=== PATIENT | male | born 1960 | race Caucasian/White ===

== ENCOUNTER → 2016-05-20 | Day surgery (SDC) | payer OTHER ==
[~2016-05-20] MED LIST: ACETAMINOPHEN 1000 MG/100 ML VIAL IV ONE; ACETAMINOPHEN/HYDROcodone 325 MG/5 MG TAB ONE; ADDE10 PO; ASAC400T PO; ASAC800T PO; AZATHIOPRINE; BUPIVACAINE/EPINEPHRINE 0.25% PF 10 ML VIAL ONE; BUPIVACAINE/EPINEPHRINE 0.25% PF 30 ML VIAL ONE; CYCL5TAB PO; IMUR50TA PO; LACTATED RINGER'S 1000 ML INJ 1,000 ML ONE; MEDR4PAK PO; MEPERIDINE HCL 25 MG/ML VIAL ONE; MIDAZOLAM HCL 2 MG/2 ML VIAL ONE; MORPHINE SULFATE 4 MG/ML INJ ONE; ONDANSETRON HCL 4 MG/2 ML VIAL IV PUSH ONE; PRED10 PO; PROPOFOL 100 MG/10 ML INJ IV ONE; PROV200T11 PO; SODIUM CHLOR 0.9% 250 ML BAG IV ONE; VANCOMYCIN HCL 1000 MG VIAL ONE
--- NOTE | 2016-05-20 22:06 | MP ---
cc: ODETTE SOLANO M.D., MICHAEL A. MD DATE OF SURGERY: 05/20/2016 PROCEDURE: Laparoscopic right inguinal hernia repair with mesh. PREOPERATIVE DIAGNOSIS: Symptomatic reducible right inguinal hernia. POSTOPERATIVE DIAGNOSIS: Symptomatic direct reducible right inguinal hernia. ANESTHESIA: LMA. SURGEON: David Quiñonez MD. LOGGING RAFTER LABORER: Sandeep Barragan MS3 ESTIMATED BLOOD LOSS: Less than 20 mL FLUIDS: 1250 mL Crystalloid COMPLICATIONS: None. DRAINS: None. SPECIMEN: None. PROCEDURE IN DETAIL The patient was seen in the holding area and the right side marked by the undersigned and confirmed by the patient. He was taken to the operating room and was placed on the operating table in the supine position. He underwent laryngeal mask anesthesia and after this the abdomen and groin were prepped and draped in the field. Time-out was taken confirming the correct patient, site and procedure to be performed. The skin and subcutaneous tissue was infiltrated with local anesthetic and an incision made in the umbilicus and carried through the fascia sharply. The peritoneal cavity was directly visualized. A 12 mm balloon trocar was inserted and the balloon inflated. The patient was placed in Trendelenburg position. A 12-mm trocar was then placed in the right lower quadrant and a 5 mm trocar in the left lower quadrant. Both entered the abdominal cavity under direct vision uneventfully. The peritoneum was then incised with scissors and peeled downward. The hernia sac was peeled off of the cord structures. The patient was noted to have a direct hernia defect. When this had been completed, a window was created behind the spermatic cord structures. A 6 x 6 inch piece of Ultra PRO mesh was trimmed down and slit longitudinally. The mesh was placed into the pelvis and the smaller inferior leaf was brought under the spermatic cord structures. The mesh was then transfixed to Tomer's ligament with 4.0 mm adri and then to the transversalis fascia with 4.8 mm adri. The epigastric vessels were divided with the harmonic scalpel prior to this to allow for complete overlap of the defect. The slit was then closed laterally with two 4.8 mm adri. The insufflation pressure was then decreased and the peritoneum was closed with the 4.8 millimeter adri. When this was completed, insufflation was completely discontinued and the left and right lower quadrant trocars were removed under direct vision. No bleeding was noted from the trocar sites. The laparoscope and umbilical port were then removed. The fascia was closed in the right lower quadrant 12 millimeter trocar site in the umbilicus with 0 Vicryl suture in a simple interrupted fashion. The remaining local anesthetic was injected into the right groin area with a total of 40 mL of 0.25% Marcaine with epinephrine utilized. The skin was closed at all three trocar sites with 4-0 Vicryl in an interrupted buried fashion. All trocar sites were dressed with Steri-Strips. The patient was extubated and taken back to the Recovery Room in stable condition. He tolerated the procedure well. MD CORINNE Chance/JOSE /9:47 AM 9:55 PM
== END | disposition home or self-care (01) ==
LOC: ESDC 06:41
PROVIDERS: ATTEND Surgery Trauma Surgery
DX: K40.90 Unilateral inguinal hernia, without obstruction or gangrene, not specified as recurrent (principal)
CPT/HCPCS: 00840; 49650; C1781; J0131; J2175; J2250; J2270; J2405; J3010; J3370; J7050; J7120

== ENCOUNTER → 2016-11-05 | Day surgery (SDC) | payer OTHER ==
[~2016-11-05] MED LIST changes: -ACETAMINOPHEN 1000 MG/100 ML VIAL IV ONE; -ACETAMINOPHEN/HYDROcodone 325 MG/5 MG TAB ONE; -ASAC400T PO; -AZATHIOPRINE; -BUPIVACAINE/EPINEPHRINE 0.25% PF 10 ML VIAL ONE; -BUPIVACAINE/EPINEPHRINE 0.25% PF 30 ML VIAL ONE; -MEPERIDINE HCL 25 MG/ML VIAL ONE; -MIDAZOLAM HCL 2 MG/2 ML VIAL ONE; -MORPHINE SULFATE 4 MG/ML INJ ONE; -ONDANSETRON HCL 4 MG/2 ML VIAL IV PUSH ONE; -PRED10 PO; -PROPOFOL 100 MG/10 ML INJ IV ONE; +PROPOFOL 500 MG/50 ML BTL IV ONE; -SODIUM CHLOR 0.9% 250 ML BAG IV ONE; -VANCOMYCIN HCL 1000 MG VIAL ONE
--- NOTE | 2016-11-05 09:17 | GIPROC ---
[facility] [address] [facility], [address] COLONOSCOPY PROCEDURE REPORT EXAM DATE: 11/05/2016 PATIENT NAME: Zay Bautista MR #: [id number] BIRTHDATE: 1960 ENDOSCOPIST: Maranda Galvan MD ORDER #: [id number] ENVIRONMENTAL ISSUES INSTRUCTOR: STATUS: outpatient INDICATIONS: The patient is a 56 yr old male here for a colonoscopy due to ulcerative colitis PROCEDURE PERFORMED: Colonoscopy with biopsy MEDICATIONS: None and Per Anesthesia. PREP QUALITY: good PREP TYPE:Other: ESTIMATED BLOOD LOSS: None CONSENT: The patient understands the risks and benefits of the procedure and understands that these risks include, but are not limited to: sedation, allergic reaction, infection, perforation and/or bleeding. Alternative means of evaluation and treatment include, among others: physical exam, x-rays, and/or surgical intervention. The patient elects to proceed with this endoscopic procedure. medical equipment was checked for proper function. Hand hygiene and appropriate measures for infection prevention was taken. After the risks, benefits and alternatives of the procedure were thoroughly explained, Informed consent was verified, confirmed and timeout was successfully executed by the treatment team. A digital exam revealed no abnormalities of the rectum The EC-[id number] ([id number]) endoscope was introduced through the anus and advanced to the cecum, which was identified by both the appendix and ileocecal valve. The instrument was then slowly withdrawn as the colon was fully examined. COLON FINDINGS: Colitis starting midtransverse -granular mucosa with superficial ulcerations rest of colon normal biopsies from cecum, ascending, transverse, splenic flexure , midtransverse, descending, sigmoid, rectum. Retroflexed views revealed internal hemorrhoids and Retroflexed views revealed small internal hemorrhoids The scope was then completely withdrawn from the patient and the procedure terminated. PROCEDURE WITHDRAWAL TIME:6minutes ADVERSE EVENTS: There were no complications. IMPRESSIONS: 1. Colitis starting midtransverse -granular mucosa with superficial ulcerations rest of colon normal biopsies from cecum, ascending, transverse, splenic flexure , midtransverse, descending, sigmoid, rectum 2. Retroflexed views revealed internal hemorrhoids 3. Retroflexed views revealed small internal hemorrhoids 4. Revealed no abnormalities of the rectum RECOMMENDATIONS: 1. Await biopsy results. Biopsy results will not be ready for 7-10 days. If you don't hear from us in two weeks, call our office for results. 2. Probiotics from any [facility] or health food store 3. Trial of Uceris stool for c/s, c diff, ova/parasites RECALL: Colonoscopy, pending biopsy results Maranda Galvan MD eSigned: Maranda Galvan MD 11/05/2016 9:17 AM cc: Kamila Haro M.D. PATIENT NAME: Zay Bautista MR#: [id number]
== END | disposition home or self-care (01) ==
LOC: ESDC 07:31
PROVIDERS: ATTEND Internal Medicine Gastroenterology
DX: K51.90 Ulcerative colitis, unspecified, without complications (principal); K64.8 Other hemorrhoids
CPT/HCPCS: 00810; 45380; 88305; J7120

== ENCOUNTER 2018-04-13 22:52 | Inpatient (IN) ==
[2018-04-13] MEDS ORDERED: Aluminum/Magnesium/Simethacone Susp 30 ML UDC PO PRN (23:12)
[2018-04-13] MEDS ORDERED: Acetaminophen 325 MG Tablet PO PRN (23:12)
[2018-04-13] MEDS ORDERED: LORazepam 0.5 MG Tablet PO PRN (23:12)
[2018-04-13] MEDS ORDERED: Sodium Chloride 0.9% 2 ML Flush PRN IV.FLUSH (23:51)
[2018-04-14 00:58] LABS: Baso % (Auto) 0.6 % (0.0-2.0); Eos % (Auto) 0.4 % (0.0-4.0); Hemoglobin 10.6 gm/dL (13.0-17.0); Lymph # (Auto) 0.5 th/mm3 (1.0-4.8); Lymph % (Auto) 9.4 % (9.0-44.0); Mean Corpuscular HGB Conc 34.2 % (32.0-36.0); Mean Corpuscular Hemoglobin 31.4 pg (27.0-34.0); Mean Corpuscular Volume 91.9 fL (80.0-100.0); Mean Platelet Volume 6.7 fL (7.0-11.0); Mono # (Auto) 0.5 th/mm3 (0.0-0.9); Mono % (Auto) 10.1 % (0.0-8.0); Neut # (Auto) 4.1 th/mm3 (1.8-7.7); Neut % (Auto) 79.5 % (16.0-70.0); Platelet Count 365 th/mm3 (150-450); Red Blood Count 3.37 mil/mm3 (4.50-5.90); White Blood Count 5.1 th/mm3 (4.0-11.0)
[2018-04-14] MEDS: Ciprofloxacin 250 MG Tablet PO SCH ×3 (01:00→20:38)
[2018-04-14] MEDS: Dextrose 5%/NaCl 0.9% Inj 1,000 ML IV.CONT SCH ×3 (01:00→20:55)
[2018-04-14 01:07] LABS: Alanine Aminotransferase 14 U/L (12-78); Albumin 2.3 g/dL (3.4-5.0); Anion Gap 6 meq/L (5-15); Aspartate Aminotransferase 11 U/L (15-37); Blood Urea Nitrogen 12 mg/dL (7-18); C-Reactive Protein 2.48 mg/dL (0.00-0.30); Calcium 7.8 mg/dL (8.5-10.1); Chloride 102 meq/L (98-107); Glomerular Filtration Rate Greater Than 89 mL/min (>89); Glucose,Random 104 mg/dL (74-106); Potassium 4.1 meq/L (3.5-5.1); Sodium 135 meq/L (136-145)
[2018-04-14 01:09] LABS: Alkaline Phosphatase 43 U/L (45-117); Total Protein 5.6 g/dL (6.4-8.2)
--- NOTE | 2018-04-14 01:15 | MH ---
cc: Annette Cerda MD DATE OF ADMISSION: 04/13/2018 ADMISSION DIAGNOSES: 1. Ulcerative colitis. 2. Fever. SECONDARY DIAGNOSES: 1. Iron deficiency. 2. Hypersomnolence. 3. Osteopenia. 4. Cachexia. 5. Pulmonary sarcoidosis. HISTORY OF PRESENT ILLNESS: Mr. Bautista is a 57-year-old man, known patient to Dr. Maranda Galvan and Dr. Ari Leonard. He has a history of hypersomnolence and sarcoidosis of the lungs. He was diagnosed with ulcerative colitis in 1998. He went into remission in 2003 and was stable on Asacol for many years. He relapsed in 2013 after a parasitic infection in [place]. Since then, he has had progressive disease symptoms, with bloody diarrhea, tenesmus and weight loss. He has been refractory to multiple therapies including Asacol, Imuran, tacrolimus, Xeljanz, and most recently Humira. He was not responded to budesonide, but previously responded to prednisone. He is on adjunctive therapy with lomotil, and immodium. Recent treatment with prednisone has not shown any improvements. He had a brief response to Xeljanz, which was just approved as an oral agent for treatment of ulcerative colitis. He again developed increase bowel movements and symptoms. Progression was documented by repeat colonoscopy 01/27/18. He was switched to more traditional therapy for ulcerative colitis, Humira. He is presently on Humira with his last dose approximately 10 days ago. Despite starting on Humira, a disease modifying agent that target tumor necrosis factor and causes immunosuppresion. His symptoms worsen since stopping the Xeljanz and starting Humira. He has an increase in bloody bowel movement, he has > 15 bowel movements per day. He wakes at night with diarrhea. Trial of octreotide did not produce any change in the volume or frequency of diarrhea. In fact his symptoms worsen with the more potent immunosuppression. His performance status, weight,appetite worsen. His fatigue is worse. In light of what seemed to be Humira failure, he is planned to start a different immunosuppressive medication, Entyvio. On the day of admission, he developed headache, muscle ache and fevers, documented at home 101.5. He may have been febrile previously but no temperature was taken. Delay in fever diagnosis due to Tylenol taken for headaches now. He had intermittent sweats and chills at night previously. He was advised admission for evaluation of infection as source of fever. He has frequent successive bowel movements, every 3-4 hours associated with cramps, bloody diarrhea, and tenesmus. He had progressive weight loss with a body mass index 18. He has chronic dehydration, complications of iron deficiency, and osteopenia associated with his longstanding colitis diarrhea. He needs to be fever free and free of infection prior to starting Entyvio. REVIEW OF SYSTEMS: He has had a decrease in appetite. Megace was tried for appetite. He tried alternative therapy with Tumeric. He tried treatment for IBD such as Iberogast, IBgard, probiotics and naltrexone. He was seen for medicinal Cannabis. He has no nausea or vomiting. He has not had any formed stools since starting Humira. He has abdominal cramps associated with bowel movements. He denies any urinary complaints. He has no cough or pulmonary symptoms. He appears to be stable from his pulmonary sarcoid followed by Dr. Pham. He has a history of hypersomnolence managed by Dr. Astorga. He has consequently depression and anxiety related to his disease, managed by Dr. Augustine. He follows with Dr. Lopez locally. He has been seen at [facility] by Dr. Holden. Laboratory evaluation for GI infection has been negative. PAST MEDICAL HISTORY: Iron deficiency, hypersomnolence, osteopenia, pulmonary sarcoid, ulcerative colitis, unintentional weight loss, anorexia. PAST SURGICAL HISTORY: Colonoscopy, basal cell removal with Mohs surgery, hernia repair. SOCIAL HISTORY: He is , lives with his and 2 children. He is a never smoker. Denies any illicit drug use. He drank socially, but not recently. FAMILY HISTORY: Father of a CVA at age 89. Mother of COPD complications at age 79. ALLERGIES: IBUPROFEN AND PENICILLIN. MEDICATIONS: Include Adderall, diazepam, Lomotil, Humira, Provigil, Tums, budesonide. Humira. Viberzi. Ibgard. PHYSICAL EXAMINATION: VITAL SIGNS: Temperature 101.8, heart rate 86, respiratory rate 20, blood pressure 105/57, saturation 98%. GENERAL: Mr. Bautista is a cachectic-appearing man with decreased body mass and no body fat. HEENT: His pupils are round, reactive to light and accommodation. Oropharynx is clear. NECK: Supple. Tonsils are enlarged. LUNGS: Clear to auscultation. CARDIOVASCULAR: Reveals normal rate and rhythm. ABDOMEN: Diffusely tender with no rebound or guarding. Prominent active bowel sounds. LOWER EXTREMITIES: With no edema. Good pulses. NEUROLOGIC: Nonfocal. He looks tired and ill. LABORATORY DATA: CBC and CMP are pending. Reported C-reactive protein is elevated. ASSESSMENT AND PLAN: Mr. Bautista is a 57-year-old man with history of hypersomnolence and pulmonary sarcoidosis. He is diagnosed with ulcerative colitis and has had a flare since 2016. He has had worsening symptoms, particularly in 2018. He has tried multiple immunosuppressive therapy. Most recently, he is on Humira with the last dose about 10 days ago. He is pending to start a new immunosuppressive therapy when he developed fevers on the day of presentation. He is advised admission to the hospital[facility]. He is advised admission by his manager code, Dr. Maranda Williamson. He needs a consultation with infectious disease to rule out infectious etiology for his fevers. His home medications will continue. Treatment with Entyvio is on hold pending infection evaluation. Blood cultures x2 will be drawn. Antibiotic therapy with Cipro and Flagyl is initiated. Stool for Clostridium difficile and WBC will be obtained. Empiric coverage for herpes zoster is initiated discussed with Dr. Galvan. Most recent colonoscopy showed viral inclusions present consistent with herpes in the background of severe acute and chronic colitis exhibiting glandular distortion, consistent with inflammatory bowel disease. It was negative for dysplasia. Dietitian will be consulted in light of his unintentional weight loss. He has poor caloric intake with increased GI loss through the gastrointestinal tract. IV fluid hydration will be initiated with D5NS. TPN is deferred until. Valium QHS continue. CT scan of ten and pelvis will be coordinated pending baseline creatinine is stable. CT chest is being considered to rule out other site of infection causing fever. Mr. Bautista's questions were answered to his satisfaction. His case was discussed with Dr. Galvan and Dr. Mclaughlin. MD MARGUERITE Grace/sean/aditya , 11:58 PM , 12:28 AM JAQUELINE
[2018-04-14] MEDS: SODIUM CHLOR 0.9% IV.SIG SCH ×3 (02:25→15:40)
[2018-04-14] MEDS: ACYCLOVIR IV.SIG SCH ×3 (02:25→15:40)
[2018-04-14 03:26] LABS: Iron 16 mcg/dL (65-175)
[2018-04-14] MEDS ORDERED: Diphenoxylate/Atropine 2.5/0.025 MG Tablet PO PRN (03:33)
[2018-04-14 03:51] LABS: Ferritin 110 ng/mL (26-388); Vitamin B12 390 pg/mL (193-986)
[2018-04-14] MEDS ORDERED: Sod Chloride 0.9% Inj 1,000 ML IV.SIG ONE (05:45)
[2018-04-14] MEDS ORDERED: Modafinil 200 MG Tablet PO SCH (09:00)
[2018-04-14] MEDS: Sodium Chloride 0.9% 2 ML Flush BID IV.FLUSH SCH ×2 (09:46→21:00)
--- NOTE | 2018-04-14 10:05 | P.PNIM ---
Subjective Interval history: denies fever since last night. Physical Exam Vital signs: Last Vital Signs Temp 99.2 F 04/14/18 05:00 Pulse 71 04/14/18 05:00 Resp 16 04/14/18 05:00 BP 88/49 L 04/14/18 06:41 Pulse Ox 99 04/14/18 05:00 Narrative: GENERAL: THIN, NAD CARDIOVASCULAR: Regular rate and rhythm without murmurs, gallops, or rubs. RESPIRATORY: Clear to auscultation. Breath sounds equal bilaterally. No wheezes , rales, or rhonchi. GASTROINTESTINAL: Abdomen soft, non-tender, nondistended. Normal active bowel sounds MUSCULOSKELETAL: Extremities without clubbing, cyanosis, or edema. NEURO: Alert & Oriented x4 to person, place, time, situation. Moves all ext x4 Results Labs CBC & Chem 7: 04/15/18 07:03 04/15/18 09:44 Assessment and Plan Assessment (1) Fever: Code(s): R50.9 - Fever, unspecified Status: Acute (2) Ulcerative colitis with complication: Code(s): K51.919 - Ulcerative colitis, unspecified with unspecified complications Status: Acute (3) Hypersomnolence disorder, persistent: Code(s): G47.10 - Hypersomnia, unspecified Status: Acute (4) Pulmonary sarcoidosis: Code(s): D86.0 - Sarcoidosis of lung Status: Acute (5) Iron deficiency: Code(s): E61.1 - Iron deficiency Status: Acute (6) Cachexia: Code(s): R64 - Cachexia Status: Acute Plan - Mr. Bautista is a 57-year-old man with history of hypersomnolence and pulmonary sarcoidosis. - He is diagnosed with ulcerative colitis and has had a flare since 2016. - He has had worsening symptoms, particularly in 2018. - He has tried multiple immunosuppressive therapy. - Most recently, he is on Humira with the last dose about 10 days prior to this admission (04/14/18) - He is pending to start a new immunosuppressive therapy when he developed fevers on the day of presentation. - He is advised [facility] - He is advised admission by his jury consultant, Dr. Maranda Williamson. - He needs a consultation with infectious disease to rule out infectious etiology for his fevers. - His home medications will continue. - Treatment with Entyvio is on hold pending infection evaluation. - Await ID consultation. - Tmax 101.8F (2300 04/13/18) - Blood Cx x2 (04/14/18) --> pending - Stool studies (04/14/18) --> pending - fecal leucocytes --> many WBCs - enteric pathogens --> pending - crytopsporidium antigen --> pending - giardia antigen --> pending - gram stain --> pending - culture and sensitivity --> pending - C.Dif (04/14/18) --> negative - Cipro (04/14/18 - present) - flagyl (04/14/18 - present) - alinia (04/15/18 - present) - Acyclovir (04/14/17 - present) for herpes zoster coverage - Most recent colonoscopy showed viral inclusions present consistent with herpes in the background of severe acute and chronic colitis exhibiting glandular distortion, consistent with inflammatory bowel disease. It was negative for dysplasia - flaker tender consult placed for unintential weight loss. - TPN - marinol - CT A/P --> pending - consider CT chest - obtain CXR - UA --> pending - DVT prophylaxis - supportive care 2) hypersomnolence - provigil - adderal prn Progress Note: Quality VTE Deep Vein Thrombosis/Pulmonary Embolism Present on Admission: No
--- NOTE | 2018-04-14 11:02 | XR ---
EXAM DATE: 04/14/2018 10:53 AM EST AGE/SEX: 57 years / Male INDICATIONS: . Fever. CLINICAL DATA: This is the patient's initial encounter. Patient reports that signs and symptoms have been present for 1 day and indicates a pain score of 0/10. MEDICAL/SURGICAL HISTORY: None. None. COMPARISON: [facility], XR CHEST PA AND LAT, 03/15/2018. . FINDINGS: The lungs are clear without infiltrate, nodule, or mass. There is no appreciable pleural effusion for technique. Heart and mediastinum are unremarkable. There is scarring and pleural thick ening in the apices bilaterally worse involving the left upper lobe not significantly changed since 2 015. COPD changes are seen. CONCLUSION: No acute cardiopulmonary disease. Electronically signed by: Isela Haile MD Board Certified Radiologist 04/14/2018 11:00 AM EST
[2018-04-14] MEDS ORDERED: Diatrizoate Meglum/Diatrizoate Sod Liq 9 ML UDC PO ONE (11:30)
--- NOTE | 2018-04-14 12:32 | P.DIET ---
Nutritional Evaluation Type of nutrition evaluation: initial Nutrition consult regarding: TPN/PPN Nutrition screening: Weight Loss > 10 lbs, Poor PO Intake, MDC Objective - Diagnosis Ulcerative colitis - Objective Body Mass Index: 18 Oran body weight: 70 kg % IBW: 77 Body Weight Used for Calculations: Actual Energy Needs - Lower Range (kCal/kg): 32 Energy Needs - Upper Range (kCal/kg): 38 Lower Limit kCal/kg (kCals): 1,715 Upper Limit kCal/kg (kCals): 2,036 Lower Limit Protein Factor (Grams per Kg): 1 Upper Limit Protein Factor (Grams per Kg): 1.5 Lower Protein Needs (Protein): 54 Upper Protein Needs (Protein): 80 Dietitian Reviewed in Medical Record: Current diet, Curent medications, Intake & Output, Labs, Medical history Diet Order: Full liquids Objective Comments: PMH; gastritis, rectal bleeding, anemia Medications; MVI Labs; reviewed Assessment Assessment: [facility] Possible TPN; Pt is currently at nutritional risk related to medical course. Pt w/ h/o UC and has been in severe relapse since 2016 s/p visit to [place] where pt acquired parasitic infection causing ongoing bloody diarrhea, tenesmus and weight loss(currently underweight with BMI of 18). Symptoms continue to worsen with increased bloody bowel movements with >15 per day and decreased appetite for which megace was trialed but did not help. Pt with iron deficiency anemia and osteopenia r/t longstanding colitis. Pt is currently ordered for full liquid diet and has consumed 25% this morning at breakfast. At this time, I am agreeable to transition pt to TPN as bowel rest is appropriate for UC. Important to note that related to clinical course with UC pt is likely malabsorbing several nutrients with ongoing diarrhea and may benefit from MVI supplementation. MVI supplementation also beneficial in the presence of osteopenia r/t oven press tender steroid use. TPN recs are as follows; Clinimix E 5/20 running at 60ml/hour with 20% lipids running at 10ml/s hour for 24 hours to provide a total of 1992kcal and 72g protein. Would recommend to obtain TG level prior to initiating TPN as it may change lipid recommendations. Will monitor labs; glucose, electrolyte levels, and TG levels in the presence of TPN. Dietitian following. Recommendations: 1. Agreeable to transition to TPN 2. TPN recs; Clinimix E 5/20 running at 60ml/ hour plus 20% lipids running at 10ml/hour for 24 hours 3. Monitor labs, electrolytes, glucose and TG in presence of TPN 4. Dietitian following Dietitian to Monitor: Lab values, Electrolytes, Glucose level, Intake & Output, TPN/PPN tolerance
--- NOTE | 2018-04-14 13:47 | MB ---
cc: Apolinar Garcia MD DATE: 04/14/2018 REQUESTING PHYSICIAN: Dr. Cerda REASON FOR VISIT: Fever, severe ulcerative colitis on immunosuppressive therapy. Recently treated with Humira, now planning to be treated with Entyvio Evaluate for infectious cause of fever. HISTORY OF PRESENT ILLNESS: This is a 57-year-old white male who presented to the hospital with fever. The patient has a history of ulcerative colitis since 2013. He has been tried on multiple agents for treatment, but has not responded appropriately. The patient has been having multiple bouts of diarrhea on a daily basis; up to 14 bouts a day. He gets cramping of the abdomen along with diarrhea. He notes that when he gets fevers he gets aches in the joints. He mentioned a fever yesterday at home and it was elected to admit him for evaluation. The patient denies cough or shortness of breath. He has a history of sarcoidosis of the lung for which he has been followed by a spooler operator. He reports that he had some improvement of his colitis when he was started on Humira, but that did not last very long. He underwent colonoscopy back in January 2018 and the pathology of the biopsies showed inclusion bodies suggesting herpes. He was put on acyclovir. The patient has had a low blood pressure after admission with a blood pressure of 83/48 and the last blood pressure today was 98/54. He is awake and alert. He is in no acute distress. He tells me that he feels chronically fatigued and that he has a decreased appetite. He reports that the Crohn's was diagnosed after he developed diarrhea while in [place] and was diagnosed with a parasite infection. Stool testing has been ordered. Chest x-ray shows no acute infiltrates. Blood cultures have been ordered. The patient had been tested for tuberculosis in the past before he was given immunosuppressive medications and it was negative. PAST MEDICAL HISTORY: Pulmonary sarcoidosis, ulcerative colitis, anorexia, iron deficiency anemia, hypersomnolence, history of basal cell carcinoma, history of hernia repair. ALLERGIES: IBUPROFEN AND PENICILLIN G. MEDICATIONS: Ciprofloxacin, acyclovir, Flagyl, Alinia, Marinol, Lomotil, Valium Adderall. SOCIAL HISTORY: The patient is . No tobacco. The patient has never smoked; occasional alcohol. No illicit drugs. FAMILY HISTORY: Noncontributory. REVIEW OF SYSTEMS: CONSTITUTIONAL: Significant for fever. Also, has sweats. HEAD, EARS, EYES HEENT: No visual blurring. No diplopia. No nasal bleeding or drainage. No difficulty swallowing or soreness of the throat. NECK: No adenopathy or swelling. RESPIRATORY: No cough or shortness of breath. CARDIOVASCULAR: No palpitation or chest pain. GASTROINTESTINAL: Significant for diarrhea and abdominal cramping. GENITOURINARY: No urgency, frequency or dysuria. HEMATOPOIETIC: No easy bruising or bleeding. INTEGUMENTARY: No skin rash or itching. NEUROLOGIC: No problems with coordination. PSYCHIATRIC: Occasional depressed mood. PHYSICAL EXAMINATION: GENERAL: This is a cachectic male who is awake and alert and in no acute distress. VITAL SIGNS: Temperature 97.9, BP 98/54, respirations 20, heart rate 91. HEENT: The head is atraumatic. Extraocular movements grossly intact. Pupils reactive to light. No icterus. Oropharynx: Slightly dry mucosa. No visible thrush. NECK: Supple without adenopathy or swelling. LUNGS: Decreased breath sounds throughout. HEART: Regular S1, S2, without audible murmurs. ABDOMEN: Bowel sounds present. Soft, no tenderness appreciated. RECTAL: Not performed. EXTREMITIES: No clubbing or cyanosis. Diffuse muscle wasting. Decreased muscle bulk. SKIN: No rash. NEUROLOGIC: No gross focal findings The patient is calm and cooperative. LABORATORY DATA: WBC 5.1, platelets 365, hemoglobin 10.6, 79% neutrophils, 10% monocytes, 9% lymphocytes. IMPRESSION: 1. Fever. ? etiology. ? infection. ? drug fever. 2. Ulcerative colitis with intractable diarrhea. 3. Weight loss. 4. 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 At this point the source of fever in this patient is unclear. RECOMMENDATIONS: 1. Continue to monitor blood cultures. 2. Monitor stool study. 3. Follow the CT scan of the abdomen and pelvis. 4. Monitor the temperature. 5. Continue the current antibiotics with ciprofloxacin, Flagyl, Acyclovir. 6. Continue Alinia for now. Thank you for this consultation. The patient's progress will be monitored and further recommendations will be made upon followup if necessary. Apolinar Garcia MD FFElva/thao , 12:58 PM , 01:19 PM JAQEULINE
[2018-04-14] MEDS: Loperamide 2 MG Capsule PO SCH ×2 (14:51→20:38)
--- NOTE | 2018-04-14 16:21 | CT ---
EXAM DATE: 04/14/2018 4:11 PM EST AGE/SEX: 57 years / Male INDICATIONS: Fevers, cachexia. Ulcerative colitis. CLINICAL DATA: This is the patient's subsequent encounter. Patient reports that signs and symptoms h ave been present for > 1 year and indicates a pain score of 6/10. MEDICAL/SURGICAL HISTORY: Ulcerative colitis. Anemia. Inguinal hernia repair. ORAL CONTRAST: Prescribed oral contrast ingested. RADIATION DOSE: 8.64 CTDI (mGy) COMPARISON: No prior exams available for comparison. TECHNIQUE: Multiple contiguous axial images were obtained through the abdomen and pelvis following b olus infusion of 70 ml Omnipaque 350 (iohexol) nonionic water-soluble contrast as a single exam dos e. Prescribed oral contrast ingested. Using automated exposure control and adjustment of the mA and/ or kV according to patient size, radiation dose was kept as low as reasonably achievable to obtain op timal diagnostic quality images. DICOM format image data is available electronically for review and comparison. FINDINGS: Abdomen CT: The spleen, pancreas and right kidney, adrenals are unremarkable. Approximate 1.1 cm cyst is present in the left kidney. There is a prominent gonadal vein on the left side. There is no evidence for any appreciable pathological adenopathy, free fluid, or bowel obstruction. Subcentimeter cyst is present in right hepatic lobe laterally. Pelvic CT: There is no evidence for mass, abscess formation, or any significant adenopathy within the pelvis. T here is moderate bowel wall thickening of the sigmoid colon and portions of the descending colon part icularly could be due to lack of proper distention, however submucosal process in this patient with u lcerative colitis should be entertained. The cecum also demonstrates questionable mild bowel wall thi ckening. CONCLUSION: There is thickening of the wall of the colon particularly the descending colon and sigmoi d colon part of it could be technical, however submucosal process in this patient with ulcerative col itis is not excluded. Electronically signed by: Isela Haile MD Board Certified Radiologist 04/14/2018 4:20 PM EST
[2018-04-14] MEDS: Mesalamine 800 MG Tablet DR PO SCH (21:34)
[2018-04-14] MEDS ORDERED: MethylPREDNISolone Sod Succinate Inj 40 MG/ML Vial IV.PUSH SCH (23:45)
--- NOTE | 2018-04-15 01:10 | MB ---
cc: Maranda Galvan MD DATE: 04/14/2018 REASON FOR CONSULTATION: Ulcerative colitis, severe diarrhea with dehydration. HISTORY OF PRESENT ILLNESS: Mr. Bautista is a very pleasant 57-year-old gentleman with multiple medical problems diagnosed with ulcerative colitis starting in 1998. As per the records, he had proctitis only. He went into remission in 2003. He was placed on Asacol for many years and that was under control. In 2013, he had a relapse after having a parasitic infection in [place]. He was treated. He improved temporarily but since then his disease was active on and off. He was tried on multiple therapies that will include Asacol, Imuran, tacrolimus, Xeljanz, Humira and Entocort with no improvement in his symptoms. He was on prednisone on and off, he used to respond to short courses of steroids. Recently, he stopped responding to the medication. The patient was also placed on Alinia, rifaximin, probiotics with no response. He was evaluated earlier this year at [facility] by Dr. Adina hugo in the IBD clinic. Recent visit in February with her, concur with Humira/Tacrolimus treatment , short course of Vancomycin was given-no improvement . Last Humira injection 10 days ago, but apparently after discussing with him and his , he had another one 3 days ago. He had worsening in his symptoms including bloody diarrhea, bowel movements, more than 15 bowels per day, decreased appetite , weight loss . He was also tried on octreotide with no improvement in his symptoms, had outpatient iv fluids He did try 2 different antispastic and antidiarrheals with no real improvement in his symptoms. Possible failure to Humira and arrangements for Entivio were made. The patient developed fever last night, 101.5. He was advised to come to the emergency room for further evaluation and treatment. He recently had Humira antibody titer done-negative . The patient was also seen by the cannabis clinic and she was approved for medical marijuana pending approval for his card. The patient has also a history of pulmonary sarcoidosis followed closely by Dr. Pham, had CT chest done, recent chest x-ray, QuantiFERON test, all negative for any acute disease. PAST MEDICAL HISTORY: Hypersomnolence osteopenia, pulmonary sarcoidosis, ulcerative colitis, anorexia, iron deficiency. PAST SURGICAL HISTORY: He had basal cell removal with Mohs surgery and hernia repair. SOCIAL HISTORY: Denies any smoking or drug use. Occasionally uses alcohol. FAMILY HISTORY: Father had CVA. Mother has COPD. ALLERGIES: PENICILLIN, IBUPROFEN, WAS TOLD NOT TO TAKE DUE TO HISTORY OF ULCERATIVE COLITIS. MEDICATIONS: 1. Adderall 2. Diazepam. 3. Lomotil. 4. Humira. 5. Provigil. 6. Tums. 7. Budesonide. 8. IBgard. 9. He was also on Prograf, but that was stopped recently. PHYSICAL EXAMINATION: GENERAL: He is sitting in bed in no acute distress. VITAL SIGNS: His T-max yesterday was 101.8, since admission his temperature was normal, currently 98, blood pressure 85/54. The patient is known to have low blood pressure. His usual blood pressure runs around 100/50. His heart rate is 82 and respirations 16. His weight is 53.6. He lost approximately 20 pounds most of it recently. REVIEW OF SYSTEMS: GENERAL: He denies any fever or chills today, but he did have yesterday prior to his admission weight loss, fatigue. ENT: No alteration in baseline hearing or activity. PULMONARY: Denies any chest pain, shortness of breath. GASTROINTESTINAL: As above. GENITOURINARY: Denies dysuria or hematuria. HEMATOLOGIC: History of anemia. No bleeding disorder. SKIN: No alteration in baseline skin lesion. NEUROLOGIC: No history of TIA or CVA kind of symptoms. GENERAL: On clinical examination, sitting in bed in no acute distress, very slim, chronically ill. HEENT: PERRLA. NECK: No JVD. No lymphadenopathy. CHEST: Clear to auscultation and palpation. CARDIOVASCULAR: S1, S2. No murmur. ABDOMEN: Soft, nontender. Bowel sounds are present. CENTRAL NERVOUS SYSTEM: Awake, alert, oriented x3. No focal signs identified. LABORATORY DATA: His white count 5.1, hemoglobin 10.6, platelets 365. Chemistries suggestive of sodium 135, potassium 4.1, chloride 102, calcium 7.8 , AST 11, ALT 14, alkaline phosphatase 43. C-reactive protein 248, total protein 5.6, albumin 2.3. CEA 0.4, TSH 0994. Stool studies were negative for C. difficile. Eosinophilic stools 5-10, which is high. Tacrolimus less than 2. Stool studies negative so far. Multiple blood tests and stool tests are still pending. CT abdomen and pelvis, which was done recently today and that was discussed with the radiologist, showed thickening of the wall of the colon, particularly in the descending colon and sigmoid colon, which could be technically however, a submucosal process in this patient who has ulcerative colitis, it is not excluded. Colonoscopy back in January of this year that showed progression of his colitis to the descending colon and some area in the transverse colon. Biopsies were performed suggestive of ulcerative colitis. One biopsy suggested possible viral inclusion. None of the others suggested the same. There was discussion at that time with pathologist and it was felt that he had extreme inflammation and it was unclear if that was true or not. The patient had a CMV viral load done earlier this year, which was negative, was evaluated at [facility] by Dr. Holden in 2018-last visit february EGD/colon in 2017 -negative egd capsule endoscopy 2016 which was negative for any small bowel pathology. MRA of the abdomen and pelvis 2018, did not show any vasculitis or any other vascular pathology. CT chest done 2018 -no active pulmonary sarcoidosis IMPRESSION: 1. Severe ulcerative colitis, not responding to the current management at this time, refractory to steroids and medical treatment so far. 2. Severe diarrhea, need to rule out infectious etiology-currently empirically started on cipro/flagyl and zivirax 3. Weight loss with malnutrition secondary to the above-ppn, marinol , nutritional consult 4. Fever resolved at this time, possible secondary to Humira-humira pending unclear at this time. Infectious process needs to be ruled out. RECOMMENDATIONS: TPN will be started. Nutritional evaluation. We will start Asacol 1.8 mg p.o. 3 times a day. Canasa suppositories, Bentyl. Continue Cipro/Flagyl/Zovirax, Marinol If no fever tonight, we will start her on Solu-Medrol IV. EGD/colonoscopy, in the morning if no fever with mild preparation Follow stool studies that were ordered that will include stool electrolytes, stool fat, alpha-1 antitrypsin. Follow-up Additional blood work was sent, -pending at this time.-Lymphocyte profile DAIJA, chromogranin, celiac panel, food allergy panel, thyroid peroxidase antibody, VIP and gastrin level, Supportive care. Consider short chain fatty acids orally and enema-not available here The patient was referred as an outpatient to [facility] awaiting appointment as Dr. Cervantes from [facility] is no longer available at that facility. If no improvement colorectal surgery evaluation Daily weight, strict monitoring of input and output. Lomotil p.r.n. Imodium as needed for diarrhea. continue IV hydration. Further recommendation will depend on the patient's clinical status and the above results. I would like to thank Dr. Cerda and Dr. Mclaughlin for referring him to our office for consultation. MD WINSOME Johnson/todd , 11:28 PM , 11:56 PM MTDD
[2018-04-15] MEDS: ACYCLOVIR IV.SIG SCH ×3 (01:18→17:25)
[2018-04-15] MEDS: SODIUM CHLOR 0.9% IV.SIG SCH ×3 (01:18→17:25)
[2018-04-15] MEDS ORDERED: Chlorhexidine Gluconate 2% 1 Pack (2 Cloths) TOPICAL ONE (06:30)
[2018-04-15] MEDS ORDERED: Sodium Chlor 0.9% Inj 500 ML IV.CONT ONE (06:30)
[2018-04-15] MEDS ORDERED: Metoprolol Tartrate 25 MG Tablet PO ONE (06:30)
[2018-04-15 07:25] LABS: Baso % (Auto) 0.1 % (0.0-2.0); Eos % (Auto) 0.1 % (0.0-4.0); Hematocrit 32.4 % (39.0-51.0); Hemoglobin 11.2 gm/dL (13.0-17.0); Lymph # (Auto) 0.4 th/mm3 (1.0-4.8); Lymph % (Auto) 8.2 % (9.0-44.0); Mean Corpuscular HGB Conc 34.7 % (32.0-36.0); Mean Corpuscular Hemoglobin 31.6 pg (27.0-34.0); Mean Corpuscular Volume 91.1 fL (80.0-100.0); Mean Platelet Volume 6.5 fL (7.0-11.0); Mono # (Auto) 0.2 th/mm3 (0.0-0.9); Mono % (Auto) 3.2 % (0.0-8.0); Neut # (Auto) 4.6 th/mm3 (1.8-7.7); Neut % (Auto) 88.4 % (16.0-70.0); Platelet Count 344 th/mm3 (150-450); Red Blood Count 3.56 mil/mm3 (4.50-5.90); White Blood Count 5.2 th/mm3 (4.0-11.0)
[2018-04-15 07:48] LABS: Anion Gap 4 meq/L (5-15); Blood Urea Nitrogen 11 mg/dL (7-18); Calcium 7.8 mg/dL (8.5-10.1); Carbon Dioxide 27.8 meq/L (21.0-32.0); Chloride 106 meq/L (98-107); Glomerular Filtration Rate Greater Than 89 mL/min (>89); Glucose,Random 143 mg/dL (74-106); Magnesium 2.3 mg/dL (1.5-2.5); Potassium 4.4 meq/L (3.5-5.1); Sodium 138 meq/L (136-145)
[2018-04-15] MEDS ORDERED: Magnesium Citrate Liq 300 ML Bottle PO ONE (09:00)
[2018-04-15] MEDS: Sodium Chloride 0.9% 2 ML Flush BID IV.FLUSH SCH ×2 (09:18→20:31)
[2018-04-15] MEDS: Loperamide 2 MG Capsule PO SCH (09:26)
[2018-04-15] MEDS: Ciprofloxacin 250 MG Tablet PO SCH ×2 (09:46→20:27)
[2018-04-15] MEDS: Mesalamine 800 MG Tablet DR PO SCH ×3 (09:46→17:25)
[2018-04-15 10:31] LABS: Albumin 2.1 g/dL (3.4-5.0); Anion Gap 8 meq/L (5-15); Aspartate Aminotransferase 12 U/L (15-37); Blood Urea Nitrogen 11 mg/dL (7-18); Calcium 7.8 mg/dL (8.5-10.1); Carbon Dioxide 26.4 meq/L (21.0-32.0); Chloride 106 meq/L (98-107); Glomerular Filtration Rate Greater Than 89 mL/min (>89); Glucose,Random 124 mg/dL (74-106); Potassium 4.3 meq/L (3.5-5.1); Sodium 140 meq/L (136-145)
[2018-04-15 10:34] LABS: Alanine Aminotransferase 16 U/L (12-78); Alkaline Phosphatase 42 U/L (45-117); Total Protein 5.7 g/dL (6.4-8.2)
[2018-04-15 10:46] LABS: Immunoglobulin A 178 mg/dL (93-514); Immunoglobulin G 913 mg/dL (660-1640); Immunoglobulin M 95 mg/dL (40-247)
--- NOTE | 2018-04-15 11:47 | P.PNIM ---
Subjective Interval history: Pt reports that he was able to sleep for 5 hours continuous overnight. Pt feels better overall. Per pt no change in constant diarrhea yet. Physical Exam Vital signs: Last Vital Signs Temp 97.3 F L 04/15/18 07:43 Pulse 62 04/15/18 07:43 Resp 19 04/15/18 07:43 BP 88/57 L 04/15/18 07:43 Pulse Ox 100 04/15/18 07:43 Narrative: GENERAL: THIN, NAD CARDIOVASCULAR: Regular rate and rhythm without murmurs, gallops, or rubs. RESPIRATORY: Clear to auscultation. Breath sounds equal bilaterally. No wheezes , rales, or rhonchi. GASTROINTESTINAL: Abdomen soft, non-tender, nondistended. Normal active bowel sounds MUSCULOSKELETAL: Extremities without clubbing, cyanosis, or edema. NEURO: Alert & Oriented x4 to person, place, time, situation. Moves all ext x4 Results Labs CBC & Chem 7: 04/15/18 07:03 04/15/18 09:44 Assessment and Plan Assessment (1) Fever: Code(s): R50.9 - Fever, unspecified Status: Acute (2) Ulcerative colitis with complication: Code(s): K51.919 - Ulcerative colitis, unspecified with unspecified complications Status: Acute (3) Hypersomnolence disorder, persistent: Code(s): G47.10 - Hypersomnia, unspecified Status: Acute (4) Pulmonary sarcoidosis: Code(s): D86.0 - Sarcoidosis of lung Status: Acute (5) Iron deficiency: Code(s): E61.1 - Iron deficiency Status: Acute (6) Cachexia: Code(s): R64 - Cachexia Status: Acute Plan - Mr. Bautista is a 57-year-old man with history of hypersomnolence and pulmonary sarcoidosis. - He is diagnosed with ulcerative colitis and has had a flare since 2016. - He has had worsening symptoms, particularly in 2018. - He has tried multiple immunosuppressive therapy. - Most recently, he is on Humira with the last dose about 10 days prior to this admission (04/14/18) - He is pending to start a new immunosuppressive therapy when he developed fevers on the day of presentation. - He is advised admission by his commutator presser, Dr. Maranda Williamson. - He needs a consultation with infectious disease to rule out infectious etiology for his fevers. - His home medications will continue. - Treatment with Entyvio is on hold pending infection evaluation. - comgmt with Gastroenterology & Infectious Disease - Tmax 101.8F (2300 04/13/18), but afebrile since - Blood Cx x2 (04/14/18) --> NGTD - Stool studies (04/14/18) --> pending - fecal leucocytes --> many WBCs - enteric pathogens --> no enteric pathogens dected by PCR - crytopsporidium antigen --> pending - giardia antigen --> pending - culture and sensitivity --> pending - C.Dif (04/14/18) --> negative - Cipro (04/14/18 - 04/15/18) - flagyl (04/14/18 - 04/15/18) - alinia (04/15/18 - present) - asacol (04/14/18 - present) - Canasa (04/14/18 - present) - Bentyl (04/14/18 - present) - Lactobacillus (04/15 - present) - IV solumedrol (04/15 - present) - Acyclovir (04/14/18 - present) for herpes zoster coverage - Most recent colonoscopy showed viral inclusions present consistent with herpes in the background of severe acute and chronic colitis exhibiting glandular distortion, consistent with inflammatory bowel disease. It was negative for dysplasia - thermal cutter helper consult placed for unintential weight loss. - TPN started (04/14/18). Will continue TPN through 04/19/18 at [facility] and/or until diarrhea improved - marinol - CT A/P (04/14/18) --> thickening of the wall of the colon particularly the descending colon & sigmoid colon part of it could be technical. Submucosal process in this pt with UC is NOT excluded. - consider CT chest --> 04/16/18 - CXR (04/14/17) --> no acute findings - GI allergy labs --> pending - stool studies sendout labs --> pending - [id number] --> pending - eosinophil stool smear (04/14/17) --> elevated 5-10 - IgG, IgA, IgM --> WNL - IgE --> pending - Chromagranin A, transgluatimin IgA, thyroglobulin Ab --> pending - throid peroxidate AB, Celiac Disease Interp --> pending - UA --> pending - Case d/w Dr. Galvan (04/15/18). Pt to undergo EGD/Colonoscopy with Biopsies later today. - Case d/w Dr. Cerda (04/15/18). - Case d/w Dr. Duran, ID, (04/15/18). Will end cipro/flagyl today. - anticpate continued hospitalization thru at least 04/19/18 - DVT prophylaxis - supportive care 2) hypersomnolence - adderal prn Progress Note: Quality VTE Deep Vein Thrombosis/Pulmonary Embolism Present on Admission: No
--- NOTE | 2018-04-15 12:35 | P.PNID ---
Subjective Remarks: Patient is afebrile and has no fevers overnight. States that he feels okay. Continues to have watery stools. Stool studies unremarkable. Blood cultures no growth. ID consulted for fever, severe ulcerative colitis on immunosuppressive therapy. Recently treated with Humira, now planning to be treated with Centavo. 57-year-old white male who presented to the hospital with fever. The patient has a history of ulcerative colitis since 2013. He has been tried on multiple agents for treatment, but has not responded appropriately. The patient has been having multiple bouts of diarrhea on a daily basis; up to 14 bouts a day. He gets cramping of the abdomen along with diarrhea. He notes that when he gets fevers he gets aches in the joints. He mentioned a fever yesterday at home and it was elected to admit him for evaluation. Past Medical History: Pulmonary sarcoidosis, ulcerative colitis, anorexia, iron deficiency anemia, hypersomnolence, history of basal cell carcinoma, history of hernia repair. Allergies/Adverse Reactions: Allergies ibuprofen Allergy (Mild, Verified 01/27/18 08:58) Irritation MD told him not to take due to ulcerative colitis penicillin G Allergy (Mild, Verified 01/27/18 08:58) Rash Objective Vital Signs 04/14/18 16:00 04/14/18 20:34 04/14/18 23:36 Temperature 98.4 F 98 F 98 F Pulse Rate 80 71 70 Respiratory Rate 18 18 18 Blood Pressure 85/54 L 88/46 L 92/64 L Pulse Oximetry 100 99 96 04/15/18 04:48 04/15/18 07:43 04/15/18 12:00 Temperature 97.5 F L 97.3 F L 97.7 F Pulse Rate 67 62 61 Respiratory Rate 18 19 16 Blood Pressure 96/53 L 88/57 L 81/48 L Pulse Oximetry 99 100 99 Intake & Output 04/14/18 04/15/18 04/15/18 18:59 06:59 18:59 Intake Total 4490 / 4490 2065 / 2065 155 / 155 Output Total 600 / 600 Balance 4490 / 4490 1465 / 1465 155 / 155 Weight 53.4 kg Intake: IV 2330 / 2330 1165 / 1165 155 / 155 D5W/Normal Saline Inj 1,000 ML 1000 / 1000 1000 / 1000 @ 100 mls/hr IV.CONT .Q10H [facility] Rx#:[id number] Zovirax Inj 250 MG In NS Inj 50 110 / 110 55 / 55 55 / 55 ML @ 55 mls/hr IV.SIG Q8H [facility] Rx#:[id number] NS Inj 1,000 ML @ 1000 mls/hr 1000 / 1000 IV.SIG .Q1H [facility] Rx#:[id number] Flagyl 500 MG Inj 100 ML @ 100 220 / 220 110 / 110 100 / 100 mls/hr IV.SIG Q8H [facility] Rx#: [id number] Oral 2160 / 2160 900 / 900 Output: Urine 600 / 600 Other: # Voids 11 Date of Last Bowel Movement 04/14/18 04/14/18 # Bowel Movements 11 04/14/18 06:52 Clean Catch Urine Urine Culture - Preliminary No growth in 24 hours 04/14/18 00:35 Blood - Peripheral Aerobic Blood Culture - Preliminary No growth in 1 day 04/14/18 00:35 Blood - Peripheral Anaerobic Blood Culture - Preliminary No growth in 1 day 04/14/18 00:30 Blood - Peripheral Aerobic Blood Culture - Preliminary No growth in 1 day 04/14/18 00:30 Blood - Peripheral Anaerobic Blood Culture - Preliminary No growth in 1 day 04/14/18 11:10 Stool Stool for WBCs - Final 04/14/18 00:50 Stool Enteric Pathogens (PCR) - Final No enteric pathogens detected by PCR (No Salmonella sp., Shigella sp., Campylobacter sp., Yersinia enterocolitica, Vibrio sp., Norovirus, or EHEC (Shiga Toxin 1 or Shiga Toxin 2) detected. 04/14/18 00:50 Stool Stool for WBCs - Final 04/14/18 00:50 Stool Cryptosporidium Antigen - Pending 04/14/18 00:50 Stool Giardia Antigen (BELA) - Pending Lab - Hematology Results 04/14/18 04/15/18 04/15/18 00:05 07:03 09:44 WBC 5.1 5.2 RBC 3.37 L 3.56 L Hgb 10.6 L 11.2 L Hct 31.0 L 32.4 L MCV 91.9 91.1 MCH 31.4 31.6 MCHC 34.2 34.7 RDW 13.0 13.0 Plt Count 365 344 MPV 6.7 L 6.5 L Neut % (Auto) 79.5 H 88.4 H Lymph % (Auto) 9.4 8.2 L Baxter % (Auto) 10.1 H 3.2 Eos % (Auto) 0.4 0.1 Baso % (Auto) 0.6 0.1 Neut # (Auto) 4.1 4.6 Lymph # (Auto) 0.5 L 0.4 L Baxter # (Auto) 0.5 0.2 Eos # (Auto) 0.0 0.0 Baso # (Auto) 0.0 0.0 WBC Differential . . Differential Comment Auto diff final Auto diff final ESR 17 Lab - Chemistry Results 04/14/18 04/14/18 04/14/18 00:05 00:05 00:05 Sodium 135 L Potassium 4.1 Chloride 102 Carbon Dioxide 27.0 Anion Gap 6 BUN 12 Creatinine 0.88 Estimated GFR Greater than 89 Random Glucose 104 Calcium 7.8 L Magnesium 2.0 Iron 16 L Ferritin 110 Total Bilirubin 0.2 AST 11 L ALT 14 Alkaline Phosphatase 43 L C-Reactive Protein 2.48 H Total Protein 5.6 L Albumin 2.3 L Carcinoembryonic Ag Vitamin B12 390 TSH 0.994 Cortisol 04/14/18 04/14/18 04/15/18 09:52 09:52 07:03 Sodium 138 Potassium 4.4 Chloride 106 Carbon Dioxide 27.8 Anion Gap 4 L BUN 11 Creatinine 0.71 Estimated GFR Greater than 89 Random Glucose 143 H Calcium 7.8 L Magnesium 2.3 Iron Ferritin Total Bilirubin AST ALT Alkaline Phosphatase C-Reactive Protein Total Protein Albumin Carcinoembryonic Ag 0.4 Vitamin B12 TSH Cortisol 21.0 04/15/18 09:44 Sodium 140 Potassium 4.3 Chloride 106 Carbon Dioxide 26.4 Anion Gap 8 BUN 11 Creatinine 0.70 Estimated GFR Greater than 89 Random Glucose 124 H Calcium 7.8 L Magnesium Iron Ferritin Total Bilirubin Less than 0.1 L AST 12 L ALT 16 Alkaline Phosphatase 42 L C-Reactive Protein Total Protein 5.7 L Albumin 2.1 L Carcinoembryonic Ag Vitamin B12 TSH Cortisol Imaging: ITS Impressions Abdomen/Pelvis CT 04/14/18 00:00 CONCLUSION: There is thickening of the wall of the colon particularly the descending colon and sigmoid colon part of it could be technical, however submucosal process in this patient with ulcerative colitis is not excluded. Chest X-Ray 04/14/18 00:00 CONCLUSION: No acute cardiopulmonary disease. Physical Exam: GENERAL: No acute distress. HEENT: The head is atraumatic. Extraocular movements grossly intact. Pupils reactive to light. No icterus. Oropharynx: Slightly dry mucosa. No visible thrush. NECK: Supple without adenopathy. LUNGS: Decreased breath sounds. No rhonchi heard. HEART: Regular S1, S2, without audible murmurs. ABDOMEN: Bowel sounds present. Soft, no tenderness appreciated. EXTREMITIES: No clubbing or cyanosis. Diffuse muscle wasting. Decreased muscle bulk. SKIN: No rash. NEUROLOGIC: No gross focal findings PSYCH: Calm and cooperative. Assessment and Plan - Plan IMPRESSION: 1. Fever. ? etiology. ? infection. ? drug fever. 2. Ulcerative colitis with intractable diarrhea. 3. Weight loss. 4. 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 At this point the source of fever in this patient is unclear. RECOMMENDATIONS: 1. Continue to monitor blood cultures. 2. Follow the CT scan of the abdomen and pelvis. 3. Monitor temperature. 4. May stop the antibiotics later today since no clear evidence suggesting infection. 5. Follow the colonoscopy results. Patient due to go for colonoscopy today.
--- NOTE | 2018-04-15 12:48 | ECG ---
Date Performed: 04/15/2018 Time Performed: 08:46:30 PTAGE: 57 years EKG: Sinus rhythm . Since the previous tracing, no significant change noted Normal ECG PREVIOUS TRACING : 01/27/18 DOCTOR: Isela Canas Interpretating Date/Time 04/15/2018 12:47:30
--- NOTE | 2018-04-15 14:32 | P.DIET ---
Nutritional Evaluation Type of nutrition evaluation: follow-up (Calorie count initiation) Nutrition consult regarding: TPN/PPN Nutrition screening: Weight Loss > 10 lbs, Poor PO Intake, [facility] Subjective Subjective Comments: Pt on PPN plus full liquid diet Objective - Diagnosis Ulcerative colitis - Objective [place] body weight: 70 kg % IBW: 77 Body Weight Used for Calculations: Actual Energy Needs - Lower Range (kCal/kg): 32 Energy Needs - Upper Range (kCal/kg): 38 Lower Limit kCal/kg (kCals): 1,715 Upper Limit kCal/kg (kCals): 2,036 Lower Limit Protein Factor (Grams per Kg): 1 Upper Limit Protein Factor (Grams per Kg): 1.5 Lower Protein Needs (Protein): 54 Upper Protein Needs (Protein): 80 Dietitian Reviewed in Medical Record: Current diet, Curent medications, Intake & Output, Labs, Medical history Diet Order: Full liquids Objective Comments: PMH; gastritis, rectal bleeding, anemia Medications; MVI Labs; reviewed Feeding - Current TPN/PPN Current PPN: Clinimix E 4.25/5 Current TPN/PPN Rate (ml/hr): 83 Current kCal Provided by TPN/PPN: 1,180 Assessment Assessment: [facility] calorie count; Pt continues to be at nutritional risk related to medical course. Currently receiving PPN Clinimix 4.25/5 at 83.3ml/hour plus 20% lipids at 10ml/ hour to provide a total of 1180kcal and 85g amino acids. 100% of pt's estimated energy needs will not be able to be met in the setting of PPN. Current PPN order provides 60% of total energy requirements and 100% of total protein requirements. In addition to PPN pt is cleared for full liquid diet and consuming about 25-50%. Calorie count will be initiated from (04/16)-(04/18) and dietitian will collect for review on (04/19). Labs reviewed; again would recommend to obtain TG level as it should be monitored, electrolytes WNL, blood glucose slightly elevated, will continue to monitor in the setting of PPN. Please continue to encourage PO intake. Will continue to monitor labs, electrolytes and PO intake. Dietitian following. From previous note 04/14/17; [facility] Possible TPN; Pt is currently at nutritional risk related to medical course. Pt w/ h/o UC and has been in severe relapse since 2016 s/p visit to [place] where pt acquired parasitic infection causing ongoing bloody diarrhea, tenesmus and weight loss(currently underweight with BMI of 18). Symptoms continue to worsen with increased bloody bowel movements with >15 per day and decreased appetite for which megace was trialed but did not help. Pt with iron deficiency anemia and osteopenia r/t longstanding colitis. Pt is currently ordered for full liquid diet and has consumed 25% this morning at breakfast. At this time, I am agreeable to transition pt to TPN as bowel rest is appropriate for UC. Important to note that related to clinical course with UC pt is likely malabsorbing several nutrients with ongoing diarrhea and may benefit from MVI supplementation. MVI supplementation also beneficial in the presence of osteopenia r/t terminal clerk steroid use. TPN recs are as follows; Clinimix E 5/20 running at 60ml/hour with 20% lipids running at 10ml/s hour for 24 hours to provide a total of 1992kcal and 72g protein. Would recommend to obtain TG level prior to initiating TPN as it may change lipid recommendations. Will monitor labs; glucose, electrolyte levels, and TG levels in the presence of TPN. Dietitian following. Recommendations: 1. Calorie count initiated 04/16-04/18 2. Continue with PPN order and full liquid diet 3. Obtain TG level 4. Encourage and monitor PO intake 5. Monitor labs Dietitian to Monitor: Lab values, Electrolytes, Glucose level, Intake & Output, TPN/PPN tolerance
--- NOTE | 2018-04-15 15:21 | GIPROC ---
[facility] [address] [facility]. [facility], [id number] EGD PROCEDURE REPORT EXAM DATE: 04/15/2018 PATIENT NAME: Zay Bautista MR #: [id number] BIRTHDATE: 1960 ATTENDING: Maranda Galvan MD ORDER #: [id number] WELDING PROCESS SPECIALIST: Roxana Hanson Stienbarger, Terrie, Howard, Jennifer, and Ravinder Calle STATUS: inpatient INDICATIONS: The patient is a 57 yr old male here for an EGD due to diarrhea, weight loss PROCEDURE PERFORMED: EGD w/ biopsy MEDICATIONS: Per Anesthesia and None. TOPICAL ANESTHETIC: none CONSENT: The patient understands the risks and benefits of the procedure and understands that these risks include, but are not limited to: sedation, allergic reaction, infection, perforation and/or bleeding. Alternative means of evaluation and treatment include, among others: physical exam, x-rays, and/or surgical intervention. The patient elects to proceed with this endoscopic procedure. medical equipment was checked for proper function. Hand hygiene and appropriate measures for infection prevention was taken. After the risks, benefits and alternatives of the procedure were thoroughly explained, Informed consent was verified, confirmed and timeout was successfully executed by the treatment team. The patient was anesthetized with topical anesthesia and the Pentax [id number] endoscope was introduced through the mouth and advanced to the second portion of the duodenum. Retroflexed views revealed a hiatal hernia The gastroscope was then slowly withdrawn and removed. Gastritis antrum-biopsy duodenum normal -biopsy from second portion and bulb esophagitis distal esophagus-biopsy. ADVERSE EVENTS: There were no complications. IMPRESSIONS: 1. Gastritis antrum-biopsy duodenum normal -biopsy from second portion and bulb esophagitis distal esophagus-biopsy 2. Retroflexed views revealed a hiatal hernia RECOMMENDATIONS: 1. Await biopsy results. Biopsy results will not be ready for 7-10 days. If you don't hear from us in two weeks, call our office for biopsy results. 2. Anti-reflux regimen 3. Avoid NSAIDS 4. Biopsy to r/o celiac and Whipple disease PATIENT CONDITION: stable DISPOSITION: Inpatient REPEAT EXAM: Return 3 years EGD Maranda Galvan MD eSigned: Maranda Galvan MD 04/15/2018 3:20 PM cc:
--- NOTE | 2018-04-15 15:39 | GIPROC ---
[facility] [address] [facility]. [facility], [address] COLONOSCOPY PROCEDURE REPORT EXAM DATE: 04/15/2018 PATIENT NAME: Zay Bautista MR #: [id number] BIRTHDATE: 1960 ENDOSCOPIST: Maranda Galvan MD ORDER #: [id number] TOY MAKER: Ravinder Calle Howard, Jennifer, Jones, Julie, and Anna Rao STATUS: inpatient INDICATIONS: The patient is a 57 yr old male here for a colonoscopy due to severe ulceartive colitis, nonresponsive to medical treatment PROCEDURE PERFORMED: Colonoscopy with biopsy MEDICATIONS: Per Anesthesia and None. PREP QUALITY: fair PREP TYPE:Other: ESTIMATED BLOOD LOSS: None CONSENT: The patient understands the risks and benefits of the procedure and understands that these risks include, but are not limited to: sedation, allergic reaction, infection, perforation and/or bleeding. Alternative means of evaluation and treatment include, among others: physical exam, x-rays, and/or surgical intervention. The patient elects to proceed with this endoscopic procedure. medical equipment was checked for proper function. Hand hygiene and appropriate measures for infection prevention was taken. After the risks, benefits and alternatives of the procedure were thoroughly explained, Informed consent was verified, confirmed and timeout was successfully executed by the treatment team. A digital exam revealed external hemorrhoids The New [id number] (Std Gastro) endoscope was introduced through the anus and advanced to the cecum, which was identified by both the appendix and ileocecal valve. The instrument was then slowly withdrawn as the colon was fully examined. COLON FINDINGS: Mild colitis with increase granularity in cecum, ascending, transverse -biopsies takne severe colitis in descending, sigmoid, rectum with increase vascularity, friability and and ulceations-multiple biopsies taken from descending, sigmoid, rectum also specimen sent for viral , bacterial oand afb culture. Retroflexed views revealed internal hemorrhoids and Retroflexed views revealed small internal hemorrhoids The scope was then completely withdrawn from the patient and the procedure terminated. PROCEDURE WITHDRAWAL TIME:6minutes ADVERSE EVENTS: There were no complications. IMPRESSIONS: 1. Mild colitis with increase granularity in cecum, ascending, transverse -biopsies takne severe colitis in descending, sigmoid, rectum with increase vascularity, friability and and ulceations-multiple biopsies taken from descending, sigmoid, rectum also specimen sent for viral , bacterial oand afb culture 2. Retroflexed views revealed internal hemorrhoids 3. Retroflexed views revealed small internal hemorrhoids 4. Revealed external hemorrhoids RECOMMENDATIONS: 1. Await biopsy results. Biopsy results will not be ready for 7-10 days. If you don't hear from us in two weeks, call our office for results. 2. Continue current regimen ENTYVIO -start date based on results and clinical status advance diet RECALL: Return 8 weeks Colonoscopy Maranda Galvan MD eSigned: Maranda Galvan MD 04/15/2018 3:38 PM cc: PATIENT NAME: Zay Bautista MR#: [id number]
[2018-04-15] MEDS: MethylPREDNISolone Sod Succinate Inj 40 MG/ML Vial IV.PUSH SCH ×2 (16:04→22:27)
[2018-04-16] MEDS: SODIUM CHLOR 0.9% IV.SIG SCH ×4 (00:05→23:00)
[2018-04-16] MEDS: ACYCLOVIR IV.SIG SCH ×4 (00:05→23:00)
[2018-04-16] MEDS: MethylPREDNISolone Sod Succinate Inj 40 MG/ML Vial IV.PUSH SCH ×3 (05:22→21:18)
[2018-04-16] MEDS: Mesalamine 800 MG Tablet DR PO SCH ×3 (08:56→17:28)
[2018-04-16] MEDS: Sodium Chloride 0.9% 2 ML Flush BID IV.FLUSH SCH ×2 (08:56→21:42)
--- NOTE | 2018-04-16 11:26 | P.PNIM ---
Subjective Interval history: Pt c/o continued frequent diarrhea. Physical Exam Vital signs: Last Vital Signs Temp 97.1 F L 04/16/18 08:00 Pulse 67 04/16/18 08:00 Resp 18 04/16/18 08:00 BP 94/64 L 04/16/18 08:00 Pulse Ox 100 04/16/18 08:00 Narrative: GENERAL: THIN, NAD CARDIOVASCULAR: Regular rate and rhythm without murmurs, gallops, or rubs. RESPIRATORY: Clear to auscultation. Breath sounds equal bilaterally. No wheezes , rales, or rhonchi. GASTROINTESTINAL: Abdomen soft, non-tender, nondistended. Normal active bowel sounds MUSCULOSKELETAL: Extremities without clubbing, cyanosis, or edema. NEURO: Alert & Oriented x4 to person, place, time, situation. 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 Bautista is a 57-year-old man with history of hypersomnolence and pulmonary sarcoidosis. - He is diagnosed with ulcerative colitis and has had a flare since 2016. - He has had worsening symptoms, particularly in 2018. - He has tried multiple immunosuppressive therapy. - Most recently, he is on Humira with the last dose about 10 days prior to this admission (04/14/18) - He is pending to start a new immunosuppressive therapy when he developed fevers on the day of presentation. - He is advised admission by his tool and die supervisor, Dr. Maranda Williamson. - He needs a consultation with infectious disease to rule out infectious etiology for his fevers. - His home medications will continue. - Treatment with Entyvio is on hold pending infection evaluation. - comgmt with Gastroenterology & Infectious Disease - Tmax 101.8F (2300 04/13/18), but afebrile since - Blood Cx x2 (04/14/18) --> NGTD - Stool studies (04/14/18) --> pending - fecal leucocytes --> many WBCs - enteric pathogens --> no enteric pathogens dected by PCR - crytopsporidium antigen --> negative - giardia antigen --> negative - C.Dif (04/14/18) --> negative - stool AFB Cx --> pending - Urine Cx (04/14/18) --> no growth - Cipro (04/14/18 - 04/15/18) - flagyl (04/14/18 - 04/15/18) - alinia (04/15/18 - 04/17/18) - asacol (04/14/18 - present) - Canasa (04/14/18 - present) - cortenema (04/16 - present) - Bentyl (04/14/18 - present) - Lactobacillus (04/15 - present) - IV solumedrol (04/15 - present) - Acyclovir (04/14/18 - present) for herpes zoster coverage - recent colonoscopy (prior to hospitalization) showed viral inclusions present consistent with herpes in the background of severe acute and chronic colitis exhibiting glandular distortion, consistent with inflammatory bowel disease. It was negative for dysplasia - dietary: obtain calorie count, TG level - TPN started (04/14/18). Will continue TPN through 04/19/18 at [place] and/or until diarrhea improved - marinol - CT A/P (04/14/18) --> thickening of the wall of the colon particularly the descending colon & sigmoid colon part of it could be technical. Submucosal process in this pt with UC is NOT excluded. - await AM BMP - If renal fxn stable, then will obtain CT chest - CXR (04/14/17) --> no acute findings - RAST testing --> pending - stool studies sendout labs --> pending - [id number] --> pending - eosinophil stool smear (04/14/17) --> elevated 5-10 - IgG, IgA, IgM --> WNL - IgE --> pending - Chlamydia Cx/trachomatis Cx --> pending - CMV --> undetected - Hep B DNA --> pending - Non respiratory viral Cx --> pending - Chromagranin A, transgluatimin IgA, - thyroglobulin Ab --> <1 - throid peroxidate AB --> <1 - Celiac Disease Interp --> pending - EGD (04/15/18) with Dr. Galvan - gastritis - antrum Bx --> pending - duodenum normal - duodenum Bx (2nd portion & bulb) --> pending - esophagitis at distal esophagus - esophageal Bx --> pending - Biopsies to r/o celiac & whipple diease - Colonoscopy (04/15/18) with Dr. Galvan 1. Mild colitis with increase granularity in cecum, ascending, transverse - biopsies taken severe colitis in descending, sigmoid, rectum with increase vascularity, friability and and ulcerations-multiple biopsies taken from descending, sigmoid, rectum also specimen sent for viral , bacterial and afb culture 2. Retroflexed views revealed internal hemorrhoids 3. Retroflexed views revealed small internal hemorrhoids 4. Revealed external hemorrhoids - Pt to start Entyvio (vedolizumab) (04/17/18) - considering resuming tacrolimus - Case d/w Dr. Duran, ID, (04/15/18). - arranging transfer to [facility] under service of Dr. Pooja Holden - DVT prophylaxis - supportive care 2) hypersomnolence - adderal prn Progress Note: Quality VTE Deep Vein Thrombosis/Pulmonary Embolism Present on Admission: No
[2018-04-16 11:50] LABS: IgA Serum 166 mg/dL (81-463); Tissue Transglutaminase Ab IgG ND U/mL (())
[2018-04-16] MEDS ORDERED: ALPRAZolam 0.5 MG Tablet PO PRN (12:26)
[2018-04-16 12:53] LABS: Anion Gap 7 meq/L (5-15); Blood Urea Nitrogen 23 mg/dL (7-18); Carbon Dioxide 26.2 meq/L (21.0-32.0); Chloride 102 meq/L (98-107); Glomerular Filtration Rate Greater Than 89 mL/min (>89); Glucose,Random 195 mg/dL (74-106); Potassium 4.3 meq/L (3.5-5.1); Sodium 135 meq/L (136-145)
[2018-04-16] MEDS ORDERED: SODIUM CHLOR 0.9% IV.SIG ONE (13:00)
[2018-04-16] MEDS ORDERED: VEDOLIZUMAB IV.SIG ONE (13:00)
[2018-04-16] MEDS ORDERED: Sodium Chlor 0.9% Inj 250 ML IV.SIG SCH (13:00)
[2018-04-16 14:28] LABS: TB1 Ag minus Nil Result 0 IU/mL
[2018-04-16 17:07] LABS: Chloride, Feces 69 mmol/L (See Comment); Fecal Fat Percent 8 % fat (< 20); Osmolality, Feces 408 mOsm/kg (See Comment); Potassium, Feces 24 mmol/L; Sodium, Feces 98 mmol/L; Stool Alpha 1 Antitrypsin 102 mg/dL (<= 54)
--- NOTE | 2018-04-16 17:34 | P.PNID ---
Subjective Remarks: Patient is afebrile. Reports that he feels okay. Says he feels better. Colonoscopy reportedly shows worsening of assertive colitis. Continues to have watery stools. Stool studies unremarkable. Blood cultures no growth. ID consulted for fever, severe ulcerative colitis on immunosuppressive therapy. Recently treated with Humira, now planning to be treated with Centavo. 57-year-old white male who presented to the hospital with fever. The patient has a history of ulcerative colitis since 2013. He has been tried on multiple agents for treatment, but has not responded appropriately. The patient has been having multiple bouts of diarrhea on a daily basis; up to 14 bouts a day. He gets cramping of the abdomen along with diarrhea. He notes that when he gets fevers he gets aches in the joints. He mentioned a fever yesterday at home and it was elected to admit him for evaluation. Past Medical History: Pulmonary sarcoidosis, ulcerative colitis, anorexia, iron deficiency anemia, hypersomnolence, history of basal cell carcinoma, history of hernia repair. Allergies/Adverse Reactions: Allergies ibuprofen Allergy (Mild, Verified 01/27/18 08:58) Irritation MD told him not to take due to ulcerative colitis penicillin G Allergy (Mild, Verified 01/27/18 08:58) Rash Objective Vital Signs 04/15/18 20:19 04/16/18 00:01 04/16/18 05:17 Temperature 97.7 F 98.3 F 97.6 F Pulse Rate 76 68 58 L Respiratory Rate 18 16 18 Blood Pressure 100/63 100/56 L 93/58 L Pulse Oximetry 96 99 100 04/16/18 08:00 Temperature 97.1 F L Pulse Rate 67 Respiratory Rate 18 Blood Pressure 94/64 L Pulse Oximetry 100 Intake & Output 04/15/18 04/16/18 04/16/18 18:59 06:59 18:59 Intake Total 560 / 560 2715 / 2715 305 / 305 Output Total 600 / 600 Balance 560 / 560 2115 / 2115 305 / 305 Weight 53.3 kg Intake: IV 310 / 310 2234 / 2235 305 / 305 Zovirax Inj 250 MG In NS Inj 50 110 / 110 55 / 55 55 / 55 ML @ 55 mls/hr IV.SIG Q8H [facility] Rx#:[id number] Intralipid 20% Inj 250 ML @ 10 250 / 250 mls/hr IV.SIG Q24H [facility] Rx#: [id number] MVI-12 Inj 10 ML Folvite Inj 1 1930 / 1930 MG In Clinimix E 4.25%/D5W Inj 2,000 ML @ 83 mls/hr IV.SIG Q24H [facility] Rx#:[id number] Flagyl 500 MG Inj 100 ML @ 100 200 / 200 mls/hr IV.SIG Q8H [facility] Rx#: [id number] Entyvio Inj 300 MG In NS Inj 250 / 250 250 ML @ 500 mls/hr IV.SIG ONCE ONE Rx#:[id number] Oral 480 / 480 Anesthesia Amount 250 / 250 Output: Urine 600 / 600 Other: # Voids 6 4 Date of Last Bowel Movement 04/15/18 04/15/18 04/16/18 # Bowel Movements 8 1 04/14/18 00:35 Blood - Peripheral Aerobic Blood Culture - Preliminary No growth in 2 days 04/14/18 00:35 Blood - Peripheral Anaerobic Blood Culture - Preliminary No growth in 2 days 04/14/18 00:30 Blood - Peripheral Aerobic Blood Culture - Preliminary No growth in 2 days 04/14/18 00:30 Blood - Peripheral Anaerobic Blood Culture - Preliminary No growth in 2 days 04/14/18 06:52 Clean Catch Urine Urine Culture - Final No growth in 48 hours 04/16/18 01:30 Stool Cryptosporidium Antigen - Pending 04/16/18 01:30 Stool Giardia Antigen (BELA) - Pending 04/15/18 15:06 Tissue - Rectal Acid Fast Bacilli Smear - Pending 04/15/18 15:06 Tissue - Rectal Mycobacterial Culture - Pending 04/14/18 00:50 Stool Cryptosporidium Antigen - Final Negative - No Cryptosporicium antigen detected In selected cases of patients with a history of immunosuppression or foreign travel, a full ova and parasites examination may be desired. Contact the microbiology lab if full workup is indicated and subit another specimen for testing. 04/14/18 00:50 Stool Giardia Antigen (BELA) - Final Negative - No Giardia Antigen detected In selected cases of patients with a history of immunosuppression or foreign travel, a full ova and parasites examination may be desired. Contact the microbiology lab if full workup is indicated and subit another specimen for testing. 04/14/18 11:10 Stool Stool for WBCs - Final 04/14/18 00:50 Stool Enteric Pathogens (PCR) - Final No enteric pathogens detected by PCR (No Salmonella sp., Shigella sp., Campylobacter sp., Yersinia enterocolitica, Vibrio sp., Norovirus, or EHEC (Shiga Toxin 1 or Shiga Toxin 2) detected. 04/14/18 00:50 Stool Stool for WBCs - Final Lab - Hematology Results 04/15/18 04/15/18 07:03 09:44 WBC 5.2 RBC 3.56 L Hgb 11.2 L Hct 32.4 L MCV 91.1 MCH 31.6 MCHC 34.7 RDW 13.0 Plt Count 344 MPV 6.5 L Neut % (Auto) 88.4 H Lymph % (Auto) 8.2 L [place] % (Auto) 3.2 Eos % (Auto) 0.1 Baso % (Auto) 0.1 Neut # (Auto) 4.6 Lymph # (Auto) 0.4 L [place] # (Auto) 0.2 Eos # (Auto) 0.0 Baso # (Auto) 0.0 WBC Differential . Differential Comment Auto diff final ESR 17 Lab - Chemistry Results 04/14/18 04/15/18 04/15/18 09:52 07:03 09:44 Sodium 138 140 Potassium 4.4 4.3 Chloride 106 106 Carbon Dioxide 27.8 26.4 Anion Gap 4 L 8 BUN 11 11 Creatinine 0.71 0.70 Estimated GFR Greater than 89 Greater than 89 Random Glucose 143 H 124 H Calcium 7.8 L 7.8 L Magnesium 2.3 Total Bilirubin Less than 0.1 L AST 12 L ALT 16 Alkaline Phosphatase 42 L Total Protein 5.7 L Albumin 2.1 L [place] Allergen IgE Ab Less than 0.10 [place] Class 0 Cashew Allergen IgE Ab Less than 0.10 Cashew [place] Class 0 Codfish Allergen IgE Ab Less than 0.10 Codfish [place] Class 0 Cow's Milk IgE Ab Less than 0.10 Egg White IgE Ab Less than 0.10 Egg White [place] Class 0 Hazelnut Allergen IgE Less than 0.10 Hazelnut [place] Class 0 Milk [place] Class 0 Peanut Allergen IgE Ab Less than 0.10 Peanut [place] Class 0 [place] Allergen IgE Ab Less than 0.10 [place] Class 0 Scallop Allergen IgE Ab Less than 0.10 Scallop [place] Class 0 Sesame Seed IgE Ab Less than 0.10 Sesame Seed [place] Cls 0 Shrimp Allergen IgE Ab 0.25 H Soybean Allergen IgE Less than 0.10 Soybean [place] Class 0 Tuna Allergen IgE Ab Less than 0.10 Tuna Conventional Clss 0 [place] Allergen IgE Ab Less than 0.10 [place] Class 0 Wheat Allergen IgE Ab Less than 0.10 Wheat [place] Class 0 04/16/18 12:23 Sodium 135 L Potassium 4.3 Chloride 102 Carbon Dioxide 26.2 Anion Gap 7 BUN 23 H Creatinine 0.69 Estimated GFR Greater than 89 Random Glucose 195 H Calcium 8.0 L Magnesium Total Bilirubin AST ALT Alkaline Phosphatase Total Protein Albumin [place] Allergen IgE Ab [place] Class Cashew Allergen IgE Ab [place] Class Codfish Allergen IgE Ab Codfish [place] Class Cow's Milk IgE Ab Egg White IgE Ab Egg White [place] Class Hazelnut Allergen IgE [place] Class Milk [place] Class Peanut Allergen IgE Ab Peanut [place] Class [place] Allergen IgE Ab [place] Convention Class Scallop Allergen IgE Ab Scall[place] Class Sesame Seed IgE Ab Sesame Seed [place] Cls Shrimp Allergen IgE Ab Soybean Allergen IgE Soybean [place] Class Tuna Allergen IgE Ab Tuna Conventional Clss [place] Allergen IgE Ab [place] Class Wheat Allergen IgE Ab Wheat [place] Class Imaging: ITS Impressions Abdomen/Pelvis CT 04/14/18 00:00 CONCLUSION: There is thickening of the wall of the colon particularly the descending colon and sigmoid colon part of it could be technical, however submucosal process in this patient with ulcerative colitis is not excluded. Chest X-Ray 04/14/18 00:00 CONCLUSION: No acute cardiopulmonary disease. Physical Exam: GENERAL: No acute distress. HEENT: No icterus. Oropharynx: Slightly dry mucosa. No visible thrush. NECK: Supple without adenopathy. LUNGS: Decreased breath sounds. No rhonchi. HEART: Regular S1, S2, without audible murmurs. ABDOMEN: Bowel sounds present. Soft, no tenderness. EXTREMITIES: No clubbing or cyanosis. Diffuse muscle wasting. Decreased muscle bulk. SKIN: No rash. NEUROLOGIC: No gross focal findings PSYCH: Calm and cooperative. Assessment and Plan - Plan IMPRESSION: 1. Fever. Temperature improved. Cultures are negative. 2. Ulcerative colitis with intractable diarrhea. 3. Weight loss. 4. 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 Now with biopsy showing worsening of ulcerative colitis RECOMMENDATIONS: Okay to stop all antibiotics. Since no signs of infection I will sign off at this point. Follow stool studies and pathology. His call if further input is needed.
--- NOTE | 2018-04-16 20:33 | P.PNGI ---
Subjective Interval history: Feeling better overall. s/p egd/colonoscopy yesterday .Multiple biopsies done tissue send for standard pathology exam, immunohistochemistry, culture .Colonoscopy consistent with severe colitis involving left colon , no change from previous examination . On PPN, reluctant to have central catheter inserted , tolerating diet well , increase appetite. Had first Entyvio infusion today , tolerated well .Still significant diarrhea, with undigested food noted . Discussed with , will accept patient for further evaluation and treatment . Agree with Entyvio infusion, recommended to restart Tacrolimus -2 mg po bid , to maintain levels between 5-10 . Discussed with patient and ,patient reluctant to restart had significant side effects , will reevaluate once at [facility] Physical Exam Vital signs: Vital Signs 04/15/18 20:19 04/16/18 00:01 04/16/18 05:17 Temperature 97.7 F 98.3 F 97.6 F Pulse Rate 76 68 58 L Respiratory Rate 18 16 18 Blood Pressure 100/63 100/56 L 93/58 L Pulse Oximetry 96 99 100 04/16/18 08:00 04/16/18 16:00 Temperature 97.1 F L 98.3 F Pulse Rate 67 76 Respiratory Rate 18 18 Blood Pressure 94/64 L 97/58 L Pulse Oximetry 100 99 Intake & Output 04/16/18 04/16/18 04/17/18 06:59 18:59 06:59 Intake Total 2715 / 2715 2285 / 2285 Output Total 600 / 600 Balance 2115 / 2115 2285 / 2285 Weight 53.3 kg 52.2 kg Intake: IV 2235 / 2235 305 / 305 Zovirax Inj 250 MG In NS Inj 50 55 / 55 55 / 55 ML @ 55 mls/hr IV.SIG Q8H [facility] Rx#:[id number] Intralipid 20% Inj 250 ML @ 10 250 / 250 mls/hr IV.SIG Q24H [facility] Rx#: [id number] MVI-12 Inj 10 ML Folvite Inj 1 1930 / 1930 MG In Clinimix E 4.25%/D5W Inj 2,000 ML @ 83 mls/hr IV.SIG Q24H [facility] Rx#:[id number] Entyvio Inj 300 MG In NS Inj 250 / 250 250 ML @ 500 mls/hr IV.SIG ONCE ONE Rx#:[id number] Oral 480 / 480 1979 Output: Urine 600 / 600 Other: # Voids 4 8 Date of Last Bowel Movement 04/15/18 04/16/18 # Bowel Movements 1 8 - Constitutional no acute distress, thin, cooperative - Routine HEENT Exam Head: Present: normocephalic Eye: Present: PERRL ENT: Present: mucous membranes moist - Routine Neck Exam Present: supple - Routine Respiratory Exam Comments: normal - Routine Cardiovascular Exam Present: S1, S2 - Routine Abdominal Exam Present: soft - Routine Extremities Exam Present: full ROM, pulses intact - Routine Skin Exam Present: intact - Routine Neurological Exam Present: alert, oriented X3 - Routine Psychiatric Exam Present: normal affect Results - Labs CBC & Chem 7: 04/15/18 07:03 04/16/18 12:23 Laboratory Results - last 24 hr 04/14/18 04/14/18 04/14/18 00:50 00:50 09:52 Sodium Potassium Chloride Carbon Dioxide Anion Gap BUN Creatinine Estimated GFR Random Glucose Calcium Stool Collect Duration Random Stool Weight 11 Stool Percent Fat 8 Stool Sodium 98 Stool Potassium 24 Stool Chloride 69 Stool Osmolality 408 Stool Osmotic Gap 46 Stool Phosphorous 30 Stool Magnesium 10 Stool t-4-Kavkhyecjxe 102 H IgA 166 IgE DAIJA Screen Endomysial Ab Titer ND Endomysial IgA Ab ND Tiss Transglutamin IgG ND Tiss Transglutamin IgA Less than 1 Celiac Disease Interp Absolute Lymphocytes % CD3 Cells Absolute CD3 Count % CD3-/CD16+/CD56+ Abs CD3-/CD16+/CD56+ % CD4 Cells Absolute CD4 Count T-Help/Suppress Ratio % CD8 Cells Absolute CD8 Count % CD19 Cells Absolute CD19 Count Enterovirus RNA RT-PCR Not detected TB (QFT) Gold In Tube TB Test (QFT) Nil TB Test Mitogen - Nil TB Test Antigen - Nil Misc Test Result Misc Test Comment 04/14/18 04/14/18 04/14/18 09:52 09:52 09:52 Sodium Potassium Chloride Carbon Dioxide Anion Gap BUN Creatinine Estimated GFR Random Glucose Calcium Stool Collect Duration Stool Weight Stool Percent Fat Stool Sodium Stool Potassium Stool Chloride Stool Osmolality Stool Osmotic Gap Stool Phosphorous Stool Magnesium Stool y-1-Udqszbkvwij IgA IgE DAIJA Screen Neg Endomysial Ab Titer Endomysial IgA Ab Tiss Transglutamin IgG Tiss Transglutamin IgA Celiac Disease Interp Absolute Lymphocytes 699 L % CD3 Cells 79 Absolute CD3 Count 555 L % CD3-/CD16+/CD56+ 12 Abs CD3-/CD16+/CD56+ 84 % CD4 Cells 49 Absolute CD4 Count 336 L T-Help/Suppress Ratio 1.70 % CD8 Cells 29 Absolute CD8 Count 196 % CD19 Cells 8 Absolute CD19 Count 54 L Enterovirus RNA RT-PCR TB (QFT) Gold In Tube Negative TB Test (QFT) Nil 0.03 TB Test Mitogen - Nil 6.57 TB Test Antigen - Nil 0 Misc Test Result Misc Test Comment 04/15/18 04/15/18 04/16/18 09:44 15:20 12:23 Sodium 135 L Potassium 4.3 Chloride 102 Carbon Dioxide 26.2 Anion Gap 7 BUN 23 H Creatinine 0.69 Estimated GFR Greater than 89 Random Glucose 195 H Calcium 8.0 L Stool Collect Duration Stool Weight Stool Percent Fat Stool Sodium Stool Potassium Stool Chloride Stool Osmolality Stool Osmotic Gap Stool Phosphorous Stool Magnesium Stool g-7-Rvbpujqiqxd IgA IgE 34.8 DAIJA Screen Endomysial Ab Titer Endomysial IgA Ab Tiss Transglutamin IgG Tiss Transglutamin IgA Celiac Disease Interp Absolute Lymphocytes % CD3 Cells Absolute CD3 Count % CD3-/CD16+/CD56+ Abs CD3-/CD16+/CD56+ % CD4 Cells Absolute CD4 Count T-Help/Suppress Ratio % CD8 Cells Absolute CD8 Count % CD19 Cells Absolute CD19 Count Enterovirus RNA RT-PCR TB (QFT) Gold In Tube TB Test (QFT) Nil TB Test Mitogen - Nil TB Test Antigen - Nil Misc Test Result Cancelled Misc Test Comment Cancelled Microbiology 04/15/18 15:06 Tissue - Rectal Acid Fast Bacilli Smear - Final No acid fast bacilli seen 04/14/18 00:35 Blood - Peripheral Aerobic Blood Culture - Preliminary No growth in 2 days 04/14/18 00:35 Blood - Peripheral Anaerobic Blood Culture - Preliminary No growth in 2 days 04/14/18 00:30 Blood - Peripheral Aerobic Blood Culture - Preliminary No growth in 2 days 04/14/18 00:30 Blood - Peripheral Anaerobic Blood Culture - Preliminary No growth in 2 days 04/14/18 06:52 Clean Catch Urine Urine Culture - Final No growth in 48 hours Assessment and Plan - Attending Attestation Severe ulcerative colitis refractory to current medical treatment -s/p ENTYVIO infusion today Severe diarrhea due to severe ulcerative colitis -minimal improvement Weight loss, malnutrition, malabsorption secondary severe ulcerative colitis 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 , repeat biopsies pending Recommendations Continue ppn , tpn preferred, will need picc line if patient agrees , may need to continue at home Transfer to tertiary center - for further evaluation and treatment as he has poor response to current medical treatment Supportive care Close monitoring of calorie intake , weight D/c Alinia in am fu stool studies and additional blood work to exclude any other etiology of chronic diarrhea , weight loss S/p egd/colonoscopy yesterday multiple biopsied to r/o Whipple disease, celiac disease sarcoid involvement of gi tract, amyloids, cmv,herpes if no improvement consider colorectal surgery evaluation
[2018-04-16] MEDS: Famotidine 20 MG Tablet PO SCH ×2 (21:41→21:43)
[2018-04-17] MEDS: MethylPREDNISolone Sod Succinate Inj 40 MG/ML Vial IV.PUSH SCH ×2 (05:18→20:21)
[2018-04-17 07:44] LABS: Chol/HDL Ratio 1.85 Ratio; HDL Cholesterol 70.6 mg/dL (40.0-60.0)
--- NOTE | 2018-04-17 09:25 | P.PNGI ---
Subjective Interval history: Pt is resting in bed, reports some improvement today, less frequent and less runny. Was able to eat breakfast. <Deandre gonzalez - Last Filed: 04/17/18 09:15> Physical Exam Vital signs: Vital Signs 04/16/18 16:00 04/16/18 20:00 04/17/18 00:00 Temperature 98.3 F 98 F 98.6 F Pulse Rate 76 77 70 Respiratory Rate 18 16 16 Blood Pressure 97/58 L 98/60 L 104/66 Pulse Oximetry 99 99 97 04/17/18 04:00 Temperature 97.5 F L Pulse Rate 69 Respiratory Rate 16 Blood Pressure 90/55 L Pulse Oximetry 98 Intake & Output 04/16/18 04/17/18 04/17/18 18:59 06:59 18:59 Intake Total 2285 / 2285 2795.2 / 2795.2 Balance 2285 / 2285 2795.2 / 2795.2 Weight 52.2 kg 55.52 kg Intake: IV 305 / 305 2315.2 / 2315.2 Zovirax Inj 250 MG In NS Inj 50 55 / 55 55 / 55 ML @ 55 mls/hr IV.SIG Q8H [facility] Rx#:[id number] Intralipid 20% Inj 250 ML @ 10 250 / 250 mls/hr IV.SIG Q24H [facility] Rx#: [id number] MVI-12 Inj 10 ML Folvite Inj 1 2009.2 / 2009.2 MG In Clinimix E 4.25%/D5W Inj 2,000 ML @ 83 mls/hr IV.SIG Q24H [facility] Rx#:[id number] Entyvio Inj 300 MG In NS Inj 250 / 250 250 ML @ 500 mls/hr IV.SIG ONCE ONE Rx#:[id number] Oral 1979 / 1979 480 / 480 Other: # Voids 8 3 Date of Last Bowel Movement 04/16/18 04/16/18 # Bowel Movements 8 5 - Constitutional no acute distress, thin - Routine HEENT Exam Head: Present: normocephalic - Routine Respiratory Exam Present: CTA bilaterally - Routine Cardiovascular Exam Present: RRR - Routine Abdominal Exam Present: soft, normoactive bowel sounds, tenderness. Absent: distended - Routine Skin Exam Present: intact, dry - Routine Neurological Exam Present: alert, oriented X3 <Deandre Marcos - Last Filed: 04/17/18 09:15> Vital signs: Vital Signs 04/16/18 20:00 04/17/18 00:00 04/17/18 04:00 Temperature 98 F 98.6 F 97.5 F L Pulse Rate 77 70 69 Respiratory Rate 16 16 16 Blood Pressure 98/60 L 104/66 90/55 L Pulse Oximetry 99 97 98 04/17/18 09:34 04/17/18 11:06 04/17/18 15:27 Temperature 98 F 97.4 F L 98.4 F Pulse Rate 74 102 H 65 Respiratory Rate 18 18 18 Blood Pressure 101/60 102/60 101/55 L Pulse Oximetry 97 97 99 Intake & Output 04/16/18 04/17/18 04/17/18 18:59 06:59 18:59 Intake Total 2285 / 2285 2795.2 / 2795.2 115 / 115 Balance 2285 / 2285 2795.2 / 2795.2 115 / 115 Weight 52.2 kg 55.52 kg Intake: IV 305 / 305 2315.2 / 2315.2 115 / 115 Zovirax Inj 250 MG In NS Inj 50 55 / 55 55 / 55 55 / 55 ML @ 55 mls/hr IV.SIG Q8H [facility] Rx#:[id number] Intralipid 20% Inj 250 ML @ 10 250 / 250 mls/hr IV.SIG Q24H [facility] Rx#: [id number] MVI-12 Inj 10 ML Folvite Inj 1 2009.2 / 2009.2 MG In Clinimix E 4.25%/D5W Inj 2,000 ML @ 83 mls/hr IV.SIG Q24H [facility] Rx#:[id number] Entyvio Inj 300 MG In NS Inj 250 / 250 250 ML @ 500 mls/hr IV.SIG ONCE ONE Rx#:[id number] Oral 1979 / 1979 480 / 480 Other: # Voids 8 3 Date of Last Bowel Movement 04/16/18 04/16/18 04/17/18 # Bowel Movements 8 5 <Maranda Galvan - Last Filed: 04/17/18 16:19> Results - Labs CBC & Chem 7: 04/15/18 07:03 04/16/18 12:23 Laboratory Results - last 24 hr 04/14/18 04/14/1804/14/19 00:50 09:52 09:52 Sodium Potassium Chloride Carbon Dioxide Anion Gap BUN Creatinine Estimated GFR Random Glucose Calcium Triglycerides Cholesterol LDL Cholesterol, Calc HDL Cholesterol Cholesterol/HDL Ratio Stool Collect Duration Random Stool Weight 11 Stool Percent Fat 8 Stool Sodium 98 Stool Potassium 24 Stool Chloride 69 Stool Osmolality 408 Stool Osmotic Gap 46 Stool Phosphorous 30 Stool Magnesium 10 Stool u-2-Jtpgeyrtrpk 102 H IgA 166 IgE DAIJA Screen Endomysial Ab Titer ND Endomysial IgA Ab ND Tiss Transglutamin IgG ND Tiss Transglutamin IgA Less than 1 Celiac Disease Interp TB (QFT) Gold In Tube Negative TB Test (QFT) Nil 0.03 TB Test Mitogen - Nil 6.57 TB Test Antigen - Nil 0 04/14/18 04/15/18 04/16/18 09:52 09:44 12:23 Sodium 135 L Potassium 4.3 Chloride 102 Carbon Dioxide 26.2 Anion Gap 7 BUN 23 H Creatinine 0.69 Estimated GFR Greater than 89 Random Glucose 195 H Calcium 8.0 L Triglycerides Cholesterol LDL Cholesterol, Calc HDL Cholesterol Cholesterol/HDL Ratio Stool Collect Duration Stool Weight Stool Percent Fat Stool Sodium Stool Potassium Stool Chloride Stool Osmolality Stool Osmotic Gap Stool Phosphorous Stool Magnesium Stool s-8-Dprmtsuzkaj IgA IgE 34.8 DAIJA Screen Neg Endomysial Ab Titer Endomysial IgA Ab Tiss Transglutamin IgG Tiss Transglutamin IgA Celiac Disease Interp TB (QFT) Gold In Tube TB Test (QFT) Nil TB Test Mitogen - Nil TB Test Antigen - Nil 04/17/18 05:27 Sodium Potassium Chloride Carbon Dioxide Anion Gap BUN Creatinine Estimated GFR Random Glucose Calcium Triglycerides 100 Cholesterol 131 LDL Cholesterol, Calc 40 HDL Cholesterol 70.6 H Cholesterol/HDL Ratio 1.85 Stool Collect Duration Stool Weight Stool Percent Fat Stool Sodium Stool Potassium Stool Chloride Stool Osmolality Stool Osmotic Gap Stool Phosphorous Stool Magnesium Stool v-3-Xwpbafyvkkq IgA IgE DAIJA Screen Endomysial Ab Titer Endomysial IgA Ab Tiss Transglutamin IgG Tiss Transglutamin IgA Celiac Disease Interp TB (QFT) Gold In Tube TB Test (QFT) Nil TB Test Mitogen - Nil TB Test Antigen - Nil Microbiology 04/15/18 15:06 Tissue - Rectal Acid Fast Bacilli Smear - Final No acid fast bacilli seen 04/14/18 00:35 Blood - Peripheral Aerobic Blood Culture - Preliminary No growth in 2 days 04/14/18 00:35 Blood - Peripheral Anaerobic Blood Culture - Preliminary No growth in 2 days 04/14/18 00:30 Blood - Peripheral Aerobic Blood Culture - Preliminary No growth in 2 days 04/14/18 00:30 Blood - Peripheral Anaerobic Blood Culture - Preliminary No growth in 2 days 04/14/18 06:52 Clean Catch Urine Urine Culture - Final No growth in 48 hours <Deandre Marcos - Last Filed: 04/17/18 09:15> - Labs CBC & Chem 7: 04/15/18 07:03 04/16/18 12:23 Laboratory Results - last 24 hr 04/14/18 04/14/18 04/17/18 00:50 09:52 05:27 Triglycerides 100 Cholesterol 131 LDL Cholesterol, Calc 40 HDL Cholesterol 70.6 H Cholesterol/HDL Ratio 1.85 Stool Collect Duration Random Stool Weight 11 Stool Percent Fat 8 Stool Sodium 98 Stool Potassium 24 Stool Chloride 69 Stool Osmolality 408 Stool Osmotic Gap 46 Stool Phosphorous 30 Stool Magnesium 10 Stool g-8-Siahiszbwfl 102 H Endomysial Ab Titer ND Endomysial IgA Ab ND Tiss Transglutamin IgA Less than 1 Celiac Disease Interp Microbiology 04/14/18 00:35 Blood - Peripheral Aerobic Blood Culture - Preliminary No growth in 3 days 04/14/18 00:35 Blood - Peripheral Anaerobic Blood Culture - Preliminary No growth in 3 days 04/14/18 00:30 Blood - Peripheral Aerobic Blood Culture - Preliminary No growth in 3 days 04/14/18 00:30 Blood - Peripheral Anaerobic Blood Culture - Preliminary No growth in 3 days 04/15/18 15:06 Tissue - Rectal Acid Fast Bacilli Smear - Final No acid fast bacilli seen <Maranda Galvan - Last Filed: 04/17/18 16:19> Assessment and Plan - Plan - Severe ulcerative colitis refractory to current medical treatment -s/p ENTYVIO infusion, he feels better today Has failed prednisone, Mesalamine, Imuran, Tacrolimus, and Humira S/p EGD on 04/15/18 1. Gastritis antrum-biopsy duodenum normal -biopsy from second portion and bulb esophagitis distal esophagus-biopsy 2. Retroflexed views revealed a hiatal hernia S/P Colonoscopy on 04/15/18 1. Mild colitis with increase granularity in cecum, ascending, transverse -biopsies taken severe colitis in descending, sigmoid, rectum with increase vascularity, friability and and ulcerations-multiple biopsies taken from descending, sigmoid, rectum also specimen sent for viral , bacterial and afb culture 2. Retroflexed views revealed internal hemorrhoids 3. Retroflexed views revealed small internal hemorrhoids 4. 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 , ID following repeat biopsies pending Plan: Continue ppn , tpn preferred, will need picc line if patient agrees , may need to continue at home Transfer to tertiary center - for further evaluation and treatment as he has poor response to current medical treatment Supportive care Close monitoring of calorie intake , weight fu stool studies and additional blood work to exclude any other etiology of chronic diarrhea , weight loss Await bx from EGd/colon for Whipple disease, celiac disease sarcoid involvement of gi tract, amyloids, cmv,herpes if no improvement consider colorectal surgery evaluation <Deandre Marcos - Last Filed: 04/17/18 09:15> - Attending Attestation seen, examined agree with above solumedrol decreased to bid if no beds and clinically improving can de dc home on tpn and close fu at [facility] with dr Holden as an op <Maranda Galvan - Last Filed: 04/17/18 16:19>
[2018-04-17] MEDS: Sodium Chloride 0.9% 2 ML Flush BID IV.FLUSH SCH ×2 (09:43→20:42)
[2018-04-17] MEDS: Famotidine 20 MG Tablet PO SCH ×2 (09:43→20:22)
[2018-04-17] MEDS: Lipase/Protease/Amylase 12/38/60 DR Capsule PO SCH ×3 (09:43→18:02)
[2018-04-17] MEDS: ACYCLOVIR IV.SIG SCH ×2 (09:44→16:47)
[2018-04-17] MEDS: SODIUM CHLOR 0.9% IV.SIG SCH ×2 (09:44→16:47)
[2018-04-17] MEDS: Mesalamine 800 MG Tablet DR PO SCH (10:06)
--- NOTE | 2018-04-17 11:35 | P.PNIM ---
Subjective Interval history: Pt having fewer bowel movements. Pt with improved appetite. Pt feeling much better overall from admission. Physical Exam Vital signs: Last Vital Signs Temp 97.4 F L 04/17/18 11:06 Pulse 102 H 04/17/18 11:06 Resp 18 04/17/18 11:06 BP 102/60 04/17/18 11:06 Pulse Ox 97 04/17/18 11:06 Narrative: GENERAL: THIN, NAD CARDIOVASCULAR: Regular rate and rhythm without murmurs, gallops, or rubs. RESPIRATORY: Clear to auscultation. Breath sounds equal bilaterally. No wheezes , rales, or rhonchi. GASTROINTESTINAL: Abdomen soft, non-tender, nondistended. Normal active bowel sounds MUSCULOSKELETAL: Extremities without clubbing, cyanosis, or edema. NEURO: Alert & Oriented x4 to person, place, time, situation. 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 Bautista is a 57-year-old man with history of hypersomnolence and pulmonary sarcoidosis. - He is diagnosed with ulcerative colitis and has had a flare since 2016. - He has had worsening symptoms, particularly in 2018. - He has tried multiple immunosuppressive therapy. - Most recently, he is on Humira with the last dose about 10 days prior to this admission (04/14/18) - He is pending to start a new immunosuppressive therapy when he developed fevers on the day of presentation. - He is advised admission by his information technology coordinator, Dr. Maranda Williamson. - He needs a consultation with infectious disease to rule out infectious etiology for his fevers. - His home medications will continue. - Treatment with Entyvio is on hold pending infection evaluation. - comgmt with Gastroenterology & Infectious Disease - Tmax 101.8F (2300 04/13/18), but afebrile since - Blood Cx x2 (04/14/18) --> NGTD - Stool studies (04/14/18) --> pending - fecal leucocytes --> many WBCs - enteric pathogens --> no enteric pathogens dected by PCR - crytopsporidium antigen --> pending - giardia antigen --> pending - culture and sensitivity --> pending - C.Dif (04/14/18) --> negative - Cipro (04/14/18 - 04/15/18) - flagyl (04/14/18 - 04/15/18) - alinia (04/15/18 - 04/17/18) - asacol (04/14/18 - 04/17/18) - Canasa (04/14/18 - present) - Bentyl (04/14/18 - present) - Lactobacillus (04/15 - present) - IV solumedrol (04/15 - present) --> decrease to BID - Acyclovir (04/14/18 - present) for herpes zoster coverage - Most recent colonoscopy showed viral inclusions present consistent with herpes in the background of severe acute and chronic colitis exhibiting glandular distortion, consistent with inflammatory bowel disease. It was negative for dysplasia - apple sorter consult placed for unintential weight loss. - PPN started (04/14/18). Will continue TPN through 04/19/18 at [place] and/or until diarrhea improved - marinol - CT A/P (04/14/18) --> thickening of the wall of the colon particularly the descending colon & sigmoid colon part of it could be technical. Submucosal process in this pt with UC is NOT excluded. - consider CT chest - CXR (04/14/17) --> no acute findings - GI allergy labs --> negative, except for shrimp allergen IgE Ab elevated at 0.25 - [id number] --> 102 (normal <54) - eosinophil stool smear (04/14/17) --> elevated 5-10 - IgG, IgA, IgM --> WNL - IgE --> WNL - Chromagranin A, transgluatimin IgA, --> pending - throid peroxidate AB, Celiac Disease Interp --> pending - Urine Cx (04/14/18) --> no growth - Chlamydia Cx/trachomatis Cx --> pending - CMV --> undetected - Hep B DNA --> pending - Non respiratory viral Cx --> pending - Chromagranin A, - transgluatimin IgA --> ,1 - transfluatimin IgG --> ND - thyroglobulin Ab --> <1 - throid peroxidate AB --> <1 - Celiac Disease Interp --> WNL - Case d/w Dr. Cerda (04/17/18). - Case d/w Dr. Galvan (04/16/18) - Case d/w Dr. Duran, ID, (04/15/18). . - case d/w Case Mgmt (04/17/18) --> still no bed availability for transfer to [facility] - obtain Midline for PPN - DVT prophylaxis - supportive care 2) hypersomnolence - adderal prn Progress Note: Quality VTE Deep Vein Thrombosis/Pulmonary Embolism Present on Admission: No
[2018-04-17] MEDS ORDERED: Heparin Central Flush 100 UNIT/ML 5 ML Vial IV.FLUSH PRN (15:28)
[2018-04-18] MEDS: SODIUM CHLOR 0.9% IV.SIG SCH ×3 (00:22→16:38)
[2018-04-18] MEDS: ACYCLOVIR IV.SIG SCH ×3 (00:22→16:38)
[2018-04-18 05:13] LABS: Baso % (Auto) 0.1 % (0.0-2.0); Eos % (Auto) 0.1 % (0.0-4.0); Hemoglobin 10.4 gm/dL (13.0-17.0); Lymph # (Auto) 0.7 th/mm3 (1.0-4.8); Lymph % (Auto) 6.5 % (9.0-44.0); Mean Corpuscular HGB Conc 34.8 % (32.0-36.0); Mean Corpuscular Hemoglobin 32.1 pg (27.0-34.0); Mean Corpuscular Volume 92.1 fL (80.0-100.0); Mean Platelet Volume 6.8 fL (7.0-11.0); Mono # (Auto) 0.5 th/mm3 (0.0-0.9); Mono % (Auto) 5.1 % (0.0-8.0); Neut # (Auto) 9.5 th/mm3 (1.8-7.7); Neut % (Auto) 88.2 % (16.0-70.0); Platelet Count 430 th/mm3 (150-450); Red Blood Count 3.25 mil/mm3 (4.50-5.90); Red Cell Distribution Width 13.3 % (11.6-17.2); White Blood Count 10.8 th/mm3 (4.0-11.0)
[2018-04-18 05:46] LABS: Alanine Aminotransferase 40 U/L (12-78); Albumin 2.2 g/dL (3.4-5.0); Alkaline Phosphatase 44 U/L (45-117); Anion Gap 5 meq/L (5-15); Aspartate Aminotransferase 43 U/L (15-37); Blood Urea Nitrogen 20 mg/dL (7-18); Calcium 7.9 mg/dL (8.5-10.1); Carbon Dioxide 26.8 meq/L (21.0-32.0); Chloride 107 meq/L (98-107); Glomerular Filtration Rate Greater Than 89 mL/min (>89); Glucose,Random 155 mg/dL (74-106); Potassium 4.7 meq/L (3.5-5.1); Sodium 139 meq/L (136-145); Total Protein 5.3 g/dL (6.4-8.2)
[2018-04-18] MEDS: Lipase/Protease/Amylase 12/38/60 DR Capsule PO SCH ×3 (09:02→18:16)
[2018-04-18] MEDS: Famotidine 20 MG Tablet PO SCH ×2 (09:02→21:04)
[2018-04-18] MEDS: Heparin Central Flush 100 UNIT/ML 5 ML Vial IV.FLUSH SCH (09:03)
[2018-04-18] MEDS: Sodium Chloride 0.9% 2 ML Flush BID IV.FLUSH SCH ×2 (09:03→21:46)
[2018-04-18] MEDS: MethylPREDNISolone Sod Succinate Inj 40 MG/ML Vial IV.PUSH SCH ×2 (09:03→21:03)
[2018-04-18 11:55] LABS: Acanthocytes 1+; Lymphocytes 7 % (9-44); Monocytes 5 % (0-8); Ovalocytes 1+; Platelet Estimate Normal (Normal); Platelet Morphology Normal (Normal)
--- NOTE | 2018-04-18 12:27 | P.PNIM ---
Subjective Interval history: diarrhea improved from admission Physical Exam Vital signs: Last Vital Signs Temp 97.4 F L 04/18/18 11:25 Pulse 82 04/18/18 11:25 Resp 18 04/18/18 11:25 BP 98/65 L 04/18/18 11:25 Pulse Ox 99 04/18/18 11:25 Narrative: GENERAL: THIN, NAD CARDIOVASCULAR: Regular rate and rhythm without murmurs, gallops, or rubs. RESPIRATORY: Clear to auscultation. Breath sounds equal bilaterally. No wheezes , rales, or rhonchi. GASTROINTESTINAL: Abdomen soft, non-tender, nondistended. Normal active bowel sounds MUSCULOSKELETAL: Extremities without clubbing, cyanosis, or edema. NEURO: Alert & Oriented x4 to person, place, time, situation. 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 Bautista is a 57-year-old man with history of hypersomnolence and pulmonary sarcoidosis. - He is diagnosed with ulcerative colitis and has had a flare since 2016. - He has had worsening symptoms, particularly in 2018. - He has tried multiple immunosuppressive therapy. - Most recently, he is on Humira with the last dose about 10 days prior to this admission (04/14/18) - He is pending to start a new immunosuppressive therapy when he developed fevers on the day of presentation. - He is advised admission by his english composition teacher, Dr. Maranda Williamson. - He needs a consultation with infectious disease to rule out infectious etiology for his fevers. - His home medications will continue. - Treatment with Entyvio is on hold pending infection evaluation. - comgmt with Gastroenterology & Infectious Disease - Tmax 101.8F (2300 04/13/18), but afebrile since - Blood Cx x2 (04/14/18) --> NGTD - Stool studies (04/14/18) --> pending - fecal leucocytes --> many WBCs - enteric pathogens --> no enteric pathogens dected by PCR - crytopsporidium antigen --> negative - giardia antigen --> negative - C.Dif (04/14/18) --> negative - Cipro (04/14/18 - 04/15/18) - flagyl (04/14/18 - 04/15/18) - alinia (04/15/18 - 04/17/18) - asacol (04/14/18 - 04/17/18) - Canasa (04/14/18 - present) - Bentyl (04/14/18 - present) - Lactobacillus (04/15 - present) - IV solumedrol (04/15 - present) --> decrease to BID - Acyclovir (04/14/18 - present) for herpes zoster coverage - Most recent colonoscopy showed viral inclusions present consistent with herpes in the background of severe acute and chronic colitis exhibiting glandular distortion, consistent with inflammatory bowel disease. It was negative for dysplasia - checker stocker consult placed for unintential weight loss. - PPN started (04/14/18), pt had PICC placed (04/17/18). PPN changed to TPN. - marinol - CT A/P (04/14/18) --> thickening of the wall of the colon particularly the descending colon & sigmoid colon part of it could be technical. Submucosal process in this pt with UC is NOT excluded. - CT chest --> pending - CXR (04/14/17) --> no acute findings - GI allergy labs --> negative, except for shrimp allergen IgE Ab elevated at 0.25 - [id number]-[id number] --> 102 (normal <54) - eosinophil stool smear (04/14/17) --> elevated 5-10 - IgG, IgA, IgM --> WNL - IgE --> WNL - Chromagranin A --> pending - thyroid peroxidate AB --> <1 - Celiac Disease Interp --> negative - Urine Cx (04/14/18) --> no growth - Chlamydia Cx/trachomatis Cx --> pending - CMV --> undetected - Hep B DNA --> pending - Non respiratory viral Cx --> pending - transgluatimin IgA --> <1 - transfluatimin IgG --> ND - thyroglobulin Ab --> <1 - throid peroxidate AB --> <1 - Celiac Disease Interp --> WNL - Case d/w Dr. Cerda (04/17/18). - Case d/w Dr. Galvan (04/16/18) - Case d/w Dr. Duran, ID, (04/15/18). . - case d/w Case Mgmt (04/17/18) --> still no bed availability for transfer to [facility] - DVT prophylaxis - supportive care 2) hypersomnolence - adderal prn Progress Note: Quality VTE Deep Vein Thrombosis/Pulmonary Embolism Present on Admission: No
--- NOTE | 2018-04-18 12:34 | P.PNGI ---
Subjective Interval history: Pt cont. to feel better, less frequent and stools are muddy. However still going a lot. PICC line in. Receiving TPN <Deandre Marcos - Last Filed: 04/18/18 12:26> Physical Exam Vital signs: Vital Signs 04/17/18 15:27 04/17/18 20:00 04/18/18 00:00 Temperature 98.4 F 98.1 F 98.0 F Pulse Rate 65 71 66 Respiratory Rate 18 18 18 Blood Pressure 101/55 L 105/56 L 110/70 Pulse Oximetry 99 99 99 04/18/18 04:00 04/18/18 08:53 04/18/18 11:25 Temperature 97.7 F 97.3 F L 97.4 F L Pulse Rate 70 79 82 Respiratory Rate 16 18 18 Blood Pressure 100/52 L 103/62 98/65 L Pulse Oximetry 99 99 99 Intake & Output 04/17/18 04/18/18 04/18/18 18:59 06:59 18:59 Intake Total 1250 / 1250 2795.2 / 2795.2 55 / 55 Balance 1250 / 1250 2795.2 / 2795.2 55 / 55 Weight 56.7 kg Intake: IV 170 / 170 2315.2 / 2315.2 55 / 55 Zovirax Inj 250 MG In NS Inj 50 110 / 110 55 / 55 55 / 55 ML @ 55 mls/hr IV.SIG Q8H JESUS MANUEL Rx#:[id number] Intralipid 20% Inj 250 ML @ 10 250 / 250 mls/hr IV.SIG Q24H JESUS MANUEL Rx#: [id number] MVI-12 Inj 10 ML Folvite Inj 1 2009. / 2009.2 MG In Clinimix E 4.25%/D5W Inj 2,000 ML @ 83 mls/hr IV.SIG Q24H JESUS MANUEL Rx#:[id number] Oral 1080 / 1080 480 / 480 Other: # Voids 5 4 Date of Last Bowel Movement 04/17/18 04/18/17 04/18/18 # Bowel Movements 5 3 - Constitutional no acute distress - Routine HEENT Exam Head: Present: normocephalic - Routine Respiratory Exam Present: CTA bilaterally - Routine Cardiovascular Exam Present: RRR - Routine Abdominal Exam Present: soft, tenderness. Absent: distended, rebound - Routine Skin Exam Present: intact, dry - Routine Neurological Exam Present: alert, oriented X3 - Routine Psychiatric Exam Present: normal affect, normal thought process <Deandre Marcos - Last Filed: 04/18/18 12:26> Vital signs: Vital Signs 04/17/18 20:00 04/18/18 00:00 04/18/18 04:00 Temperature 98.1 F 98.0 F 97.7 F Pulse Rate 71 66 70 Respiratory Rate 18 18 16 Blood Pressure 105/56 L 110/70 100/52 L Pulse Oximetry 99 99 99 04/18/18 08:53 04/18/18 11:25 04/18/18 15:48 Temperature 97.3 F L 97.4 F L 97.7 F Pulse Rate 79 82 86 Respiratory Rate 18 18 18 Blood Pressure 103/62 98/65 L 109/67 Pulse Oximetry 99 99 99 Intake & Output 04/17/18 04/18/18 04/18/18 18:59 06:59 18:59 Intake Total 1250 / 1250 2795.2 / 2795.2 55 / 55 Balance 1250 / 1250 2795.2 / 2795.2 55 / 55 Weight 56.7 kg Intake: IV 170 / 170 2315.2 / 2315.2 55 / 55 Zovirax Inj 250 MG In NS Inj 50 110 / 110 55 / 55 55 / 55 ML @ 55 mls/hr IV.SIG Q8H JESUS MANUEL Rx#:[id number] Intralipid 20% Inj 250 ML @ 10 250 / 250 mls/hr IV.SIG Q24H JESUS MANUEL Rx#: [id number] MVI-12 Inj 10 ML Folvite Inj 1 2009.2 / 2009.2 MG In Clinimix E 4.25%/D5W Inj 2,000 ML @ 83 mls/hr IV.SIG Q24H JESUS MANUEL Rx#:[id number] Oral [facility] / 1080 480 / 480 Other: # Voids 5 4 Date of Last Bowel Movement 04/17/18 04/18/17 04/18/18 # Bowel Movements 5 3 <Maranda Galvan - Last Filed: 04/18/18 16:16> Results - Labs CBC & Chem 7: 04/18/18 04:30 04/18/18 04:30 Laboratory Results - last 24 hr 04/18/18 04/18/18 04:30 04:30 WBC 10.8 RBC 3.25 L Hgb 10.4 L Hct 30.0 L MCV 92.1 MCH 32.1 MCHC 34.8 RDW 13.3 Plt Count 430 MPV 6.8 L Prelim Diff (Auto) Slide review pending Neut % (Auto) 88.2 H Lymph % (Auto) 6.5 L Mcleod % (Auto) 5.1 Eos % (Auto) 0.1 Baso % (Auto) 0.1 Neut # (Auto) 9.5 H Lymph # (Auto) 0.7 L Mcleod # (Auto) 0.5 Eos # (Auto) 0.0 Baso # (Auto) 0.0 WBC Differential Manual diff final Seg Neuts % (Manual) 84 H Band Neuts % (Manual) 4 Lymphocytes % (Manual) 7 L Monocytes % (Manual) 5 Abs Neuts (Manual) 9.5 H Differential Comment . Platelet Estimate Normal Platelet Morphology Normal Ovalocytes 1+ H Acanthocytes (Spur) 1+ H Sodium 139 Potassium 4.7 Chloride 107 Carbon Dioxide 26.8 Anion Gap 5 BUN 20 H Creatinine 0.74 Estimated GFR Greater than 89 Random Glucose 155 H Osmolality 297 H Calcium 7.9 L Total Bilirubin Less than 0.1 L AST 43 H ALT 40 Alkaline Phosphatase 44 L Total Protein 5.3 L Albumin 2.2 L Microbiology 04/14/18 00:35 Blood - Peripheral Aerobic Blood Culture - Preliminary No growth in 4 days 04/14/18 00:35 Blood - Peripheral Anaerobic Blood Culture - Preliminary No growth in 4 days 04/14/18 00:30 Blood - Peripheral Aerobic Blood Culture - Preliminary No growth in 4 days 04/14/18 00:30 Blood - Peripheral Anaerobic Blood Culture - Preliminary No growth in 4 days <Deandre Marcos - Last Filed: 04/18/18 12:26> - Labs CBC & Chem 7: 04/18/18 04:30 04/18/18 04:30 Laboratory Results - last 24 hr 04/18/18 04/18/18 04/18/18 04:30 04:30 13:07 WBC 10.8 RBC 3.25 L Hgb 10.4 L Hct 30.0 L MCV 92.1 MCH 32.1 MCHC 34.8 RDW 13.3 Plt Count 430 MPV 6.8 L Prelim Diff (Auto) Slide review pending Neut % (Auto) 88.2 H Lymph % (Auto) 6.5 L Mcleod % (Auto) 5.1 Eos % (Auto) 0.1 Baso % (Auto) 0.1 Neut # (Auto) 9.5 H Lymph # (Auto) 0.7 L Mcleod # (Auto) 0.5 Eos # (Auto) 0.0 Baso # (Auto) 0.0 WBC Differential Manual diff final Seg Neuts % (Manual) 84 H Band Neuts % (Manual) 4 Lymphocytes % (Manual) 7 L Monocytes % (Manual) 5 Abs Neuts (Manual) 9.5 H Differential Comment . Platelet Estimate Normal Platelet Morphology Normal Ovalocytes 1+ H Acanthocytes (Spur) 1+ H Sodium 139 Potassium 4.7 Chloride 107 Carbon Dioxide 26.8 Anion Gap 5 BUN 20 H Creatinine 0.74 Estimated GFR Greater than 89 POC Glucose 124 H Random Glucose 155 H Osmolality 297 H Calcium 7.9 L Total Bilirubin Less than 0.1 L AST 43 H ALT 40 Alkaline Phosphatase 44 L Total Protein 5.3 L Albumin 2.2 L Microbiology 04/14/18 00:35 Blood - Peripheral Aerobic Blood Culture - Preliminary No growth in 4 days 04/14/18 00:35 Blood - Peripheral Anaerobic Blood Culture - Preliminary No growth in 4 days 04/14/18 00:30 Blood - Peripheral Aerobic Blood Culture - Preliminary No growth in 4 days 04/14/18 00:30 Blood - Peripheral Anaerobic Blood Culture - Preliminary No growth in 4 days - Imaging Impressions Chest CT 04/18/18 00:00 CONCLUSION: 1. Stable areas of scarring in the lungs not significantly changed since 2017. <Maranda Galvan - Last Filed: 04/18/18 16:16> Assessment and Plan - Plan - Severe ulcerative colitis refractory to current medical treatment -s/p ENTYVIO infusion, he cont. to feel better but still going a lot Has failed prednisone, Mesalamine, Imuran, Tacrolimus, and Humira S/p EGD on 04/15/18 1. Gastritis antrum-biopsy duodenum normal -biopsy from second portion and bulb esophagitis distal esophagus-biopsy 2. Retroflexed views revealed a hiatal hernia S/P Colonoscopy on 04/15/18 1. Mild colitis with increase granularity in cecum, ascending, transverse -biopsies taken severe colitis in descending, sigmoid, rectum with increase vascularity, friability and and ulcerations-multiple biopsies taken from descending, sigmoid, rectum also specimen sent for viral , bacterial and afb culture 2. Retroflexed views revealed internal hemorrhoids 3. Retroflexed views revealed small internal hemorrhoids 4. 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 TPN, may need to continue at home Transfer to tertiary center - for further evaluation and treatment as he has poor response to current medical treatment Transfer in process but no bed available Close monitoring of calorie intake , weight fu stool studies and additional blood work to exclude any other etiology of chronic diarrhea , weight loss Await bx from EGd/colon for Whipple disease, celiac disease sarcoid involvement of gi tract, amyloids, cmv,herpes if no improvement consider colorectal surgery evaluation <Deandre Marcos - Last Filed: 04/18/18 12:26> - Attending Attestation seen, examined overall improvement if no transfer by tomorrow due to lack of bed we can discharge home on tpn and with an appointment as an op within 1 week with we will taper iv steroids and start po steroids along with Tacrolimus we will start Tacrolimus low dose than increase to 2 mg po bid-patient reluctant as he had side effects to it entyvio next dose in 2 weeks from last one home care to make arrangement s for tpn He will need to complete a 2 week course of antiviral full dose, than may need prophylactic dose along with immunosuppressive medications ct chest noted- no active disease await all labs, pathology and stool results high stool osmolality /blood osmolality minimal elevation, most likely improper storage of stool specimen -if no improvement may need to be repeated <Maranda Galvan - Last Filed: 04/18/18 16:16>
[2018-04-18] MEDS ORDERED: Iohexol 350 MG/ML 50 ML Vial (for Rad Diag) IVCONTRAST ONE (14:09)
--- NOTE | 2018-04-18 14:26 | CT ---
EXAM DATE: 04/18/2018 2:09 PM EST AGE/SEX: 57 years / Male INDICATIONS: Fever, Pulmonary Sarcoid per patient CLINICAL DATA: This is the patient's initial encounter. Patient reports that signs and symptoms have been present for 1 day and indicates a pain score of 0/10. MEDICAL/SURGICAL HISTORY: Carcinoma, basal cell. Ulcerative colitis. . Hernia Repair RADIATION DOSE: 4.55 CTDI (mGy) COMPARISON: [facility], CT CHEST W AND W/O CONTRAST, 03/03/2017. . TECHNIQUE: Multiple contiguous axial images were obtained through the chest during bolus infusion of 65ML ml Omnipaque 350 (iohexol) nonionic water-soluble contrast as a single exam dose. Images wer e obtained in suspended respiration using multiple row detector helical technique. Using automated e xposure control and adjustment of the mA and/or kV according to patient size, radiation dose was kept as low as reasonably achievable to obtain optimal diagnostic quality images. DICOM format image elen a is available electronically for review and comparison. FINDINGS: There is a tiny subcentimeter cyst right hepatic lobe laterally. There are areas of parenchymal scarr ing in bilateral upper lobes not significantly changed since prior chest CT from 02/2017. These have the appearance of scar. There is no pathological adenopathy. There is no pleural effusion. CONCLUSION: 1. Stable areas of scarring in the lungs not significantly changed since 2016. Electronically signed by: Isela Haile MD Board Certified Radiologist 04/18/2018 2:25 PM EST
[2018-04-18] MEDS: Multivitamin Inj 10 ML, Folic Acid Inj 1 MG in AA 5%/D20W - Electrolytes 2,000 ML IV.SIG SCH (21:02)
[2018-04-19] MEDS: ACYCLOVIR IV.SIG SCH ×4 (00:36→23:31)
[2018-04-19] MEDS: SODIUM CHLOR 0.9% IV.SIG SCH ×4 (00:36→23:31)
[2018-04-19] MEDS: Famotidine 20 MG Tablet PO SCH ×2 (09:49→21:59)
[2018-04-19] MEDS: MethylPREDNISolone Sod Succinate Inj 40 MG/ML Vial IV.PUSH SCH (09:49)
[2018-04-19] MEDS: Lipase/Protease/Amylase 12/38/60 DR Capsule PO SCH ×3 (09:50→18:53)
[2018-04-19] MEDS: Sodium Chloride 0.9% 2 ML Flush BID IV.FLUSH SCH ×2 (09:51→21:59)
[2018-04-19] MEDS: Heparin Central Flush 100 UNIT/ML 5 ML Vial IV.FLUSH SCH (10:06)
--- NOTE | 2018-04-19 10:17 | P.DIET ---
Nutritional Evaluation Type of nutrition evaluation: follow-up (Calorie count initiation) Nutrition consult regarding: TPN/PPN Nutrition screening: Weight Loss > 10 lbs, Poor PO Intake, MDC Subjective Subjective Comments: Pt on PPN plus full liquid diet Objective - Diagnosis Ulcerative colitis - Objective Hitchins body weight: 70 kg % IBW: 77 Body Weight Used for Calculations: Actual Energy Needs - Lower Range (kCal/kg): 32 Energy Needs - Upper Range (kCal/kg): 38 Lower Limit kCal/kg (kCals): 1,715 Upper Limit kCal/kg (kCals): 2,036 Lower Limit Protein Factor (Grams per Kg): 1 Upper Limit Protein Factor (Grams per Kg): 1.5 Lower Protein Needs (Protein): 54 Upper Protein Needs (Protein): 80 Dietitian Reviewed in Medical Record: Current diet, Curent medications, Intake & Output, Labs, Medical history Diet Order: Full liquids Oral Diet Intake Amount: Good 75-90% Objective Comments: PMH; gastritis, rectal bleeding, anemia Medications; MVI, TPN Labs; Glucose 195, 155 Feeding - Current TPN/PPN Current TPN: Clinimix E 5/20 Current TPN/PPN Rate (ml/hr): 60 Assessment Assessment: Calorie count collected and evaluated (04/19/2018). Pt reports good appetite and has consistent good PO intake ~100% per calorie count, however still with consistent diarrhea ~14x per day. Noted central line placed (04/19/2018) and pt now receiving TPN vs. PPN in addition to regular diet. Current TPN order is Clinimix E 5/20 running at 60ml/hour plus 20% lipids running at 10mls/hour for 24 hours to provide a total of 1920kcals and 72g amino acids which adequately meets 100% of pt's assessed needs. Pt's weight is slowly trending back upward towards usual body weight. Current body weight is 57kg and per pt usual body weight is 62kg. Currently awaiting transfer to [facility] vs. home and will d/c on current TPN order. At this time I am agreeable to continue with and discharge pt on TPN order as malabsorption is of great concern with persistent diarrhea. Labs and medications reviewed, noted blood glucose trending high, likely in the setting of inflammation and TPN, will monitor closely. Will continue to follow clinical course. From Previous note (04/15/2018)[facility] [place] calorie count; Pt continues to be at nutritional risk related to medical course. Currently receiving PPN Clinimix 4.25/5 at 83.3ml/hour plus 20% lipids at 10ml/ hour to provide a total of 1180kcal and 85g amino acids. 100% of pt's estimated energy needs will not be able to be met in the setting of PPN. Current PPN order provides 60% of total energy requirements and 100% of total protein requirements. In addition to PPN pt is cleared for full liquid diet and consuming about 25-50%. Calorie count will be initiated from (04/16)-(04/18) and dietitian will collect for review on (04/19 ). Labs reviewed; again would recommend to obtain TG level as it should be monitored, electrolytes WNL, blood glucose slightly elevated, will continue to monitor in the setting of PPN. Please continue to encourage PO intake. Will continue to monitor labs, electrolytes and PO intake. Dietitian following. From previous note (04/14/18); [facility] [place] Possible TPN; Pt is currently at nutritional risk related to medical course. Pt w/ h/o UC and has been in severe relapse since 2016 s/p visit to [place] where pt acquired parasitic infection causing ongoing bloody diarrhea, tenesmus and weight loss(currently underweight with BMI of 18). Symptoms continue to worsen with increased bloody bowel movements with >15 per day and decreased appetite for which megace was trialed but did not help. Pt with iron deficiency anemia and osteopenia r/t longstanding colitis. Pt is currently ordered for full liquid diet and has consumed 25% this morning at breakfast. At this time, I am agreeable to transition pt to TPN as bowel rest is appropriate for UC. Important to note that related to clinical course with UC pt is likely malabsorbing several nutrients with ongoing diarrhea and may benefit from MVI supplementation. MVI supplementation also beneficial in the presence of osteopenia r/t exterminator steroid use. TPN recs are as follows; Clinimix E 5/20 running at 60ml/hour with 20% lipids running at 10ml/s hour for 24 hours to provide a total of 1992kcal and 72g protein. Would recommend to obtain TG level prior to initiating TPN as it may change lipid recommendations. Will monitor labs; glucose, electrolyte levels, and TG levels in the presence of TPN. Dietitian following. Recommendations: 1. Continue with current TPN order to meet 100% of pt's assessed needs 2. Continue with regular diet although pt meeting needs through TPN in the setting of malabsorption 3. Monitor labs closely Dietitian to Monitor: Lab values, Electrolytes, Glucose level, Intake & Output, TPN/PPN tolerance
--- NOTE | 2018-04-19 13:50 | P.DCO ---
Home Health Nursing Order: Medical education, Signs/symptoms of disease process, Nursing assessment with vital signs and IV medication administration Instructions: Pt will receive tpn for at least 4 weeks through a picc line. The tpn is scheduled for 8pm to 8am daily. Please check CMP,MG,PHOS weekly on Thursday starting 04/26 while receiving the tpn. Results to Dr Nba Leonard/Dr Maranda Galvan. Picc line removal to be determined by Dr Leonard/Cole. Case Management Consult Case Management Consult-Home Health: Yes I have seen patient Zay Bautista on 04/19/18. My clinical findings support the need for the requested home health care services because: I certify that my clinical findings support that this patient is homebound because:
--- NOTE | 2018-04-19 13:56 | P.PNIM ---
Subjective Interval history: stool "muddy" and frequent, but improved. tolerated 100% of his meals. Physical Exam Vital signs: Last Vital Signs Temp 97.8 F 04/19/18 12:00 Pulse 86 04/19/18 12:00 Resp 20 04/19/18 12:00 BP 107/59 L 04/19/18 12:00 Pulse Ox 98 04/19/18 12:00 Narrative: heart reg lung cta abd s/nt ext no edema picc line Results Labs CBC & Chem 7: 04/18/18 04:30 04/18/18 04:30 Assessment and Plan Plan - Mr. Bautista is a 57-year-old man with history of hypersomnolence and pulmonary sarcoidosis. - He is diagnosed with ulcerative colitis and has had a flare since 2016. - He has had worsening symptoms, particularly in 2018. - He has tried multiple immunosuppressive therapy. - Most recently, he is on Humira with the last dose about 10 days prior to this admission (04/14/18) - He is pending to start a new immunosuppressive therapy when he developed fevers on the day of presentation. - He is advised admission by his synthetic resin operator, Dr. Maranda Galvan. - He needs a consultation with infectious disease to rule out infectious etiology for his fevers. - His home medications will continue. - Treatment with Entyvio is on hold pending infection evaluation. - comgmt with Gastroenterology & Infectious Disease - Tmax 101.8F (2300 04/13/18), but afebrile since - Blood Cx x2 (04/14/18) --> NGTD - Stool studies (04/14/18) --> pending - fecal leucocytes --> many WBCs - enteric pathogens --> no enteric pathogens dected by PCR - crytopsporidium antigen --> negative - giardia antigen --> negative - C.Diff (04/14/18) --> negative - Cipro (04/14/18 - 04/15/18) - flagyl (04/14/18 - 04/15/18) - alinia (04/15/18 - 04/17/18) - asacol (04/14/18 - 04/17/18) - Canasa (04/14/18 - present) - Bentyl (04/14/18 - present) - Lactobacillus (04/15 - present) - IV solumedrol (04/15 - present) - Acyclovir (04/14/18 - present) for herpes zoster coverage - Most recent colonoscopy showed viral inclusions present consistent with herpes in the background of severe acute and chronic colitis exhibiting glandular distortion, consistent with inflammatory bowel disease. It was negative for dysplasia - senior safety support manager consult placed for unintential weight loss. - PPN started (04/14/18), pt had PICC placed (04/17/18). PPN changed to TPN. - marinol - CT A/P (04/14/18) --> thickening of the wall of the colon particularly the descending colon & sigmoid colon part of it could be technical. Submucosal process in this pt with UC is NOT excluded. - CT chest --> old scarring. - CXR (04/14/17) --> no acute findings - GI allergy labs --> negative, except for shrimp allergen IgE Ab elevated at 0.25 - [id number] --> 102 (normal <54) - eosinophil stool smear (04/14/17) --> elevated 5-10 - IgG, IgA, IgM --> WNL - IgE --> WNL - Chromagranin A --> pending - thyroid peroxidate AB --> <1 - Celiac Disease Interp --> negative - Urine Cx (04/14/18) --> no growth - Chlamydia Cx/trachomatis Cx --> pending - CMV --> undetected - Hep B DNA --> pending - Non respiratory viral Cx --> pending - transgluatimin IgA --> <1 - transfluatimin IgG --> ND - thyroglobulin Ab --> <1 - throid peroxidate AB --> <1 - Celiac Disease Interp --> WNL - Case d/w Dr. Cerda - Case d/w Dr. Galvan - Case d/w Dr. Duran, ID, (04/15/18). . - case d/w Case Mgmt No bed at [facility]. Will plan for home tomorrow Arrange TPN for night infusion at home. discussed with CM and working with Dakotah at [facility]. [facility] ordered with weekly labcheck. plan for dc home prednisone taper/tacrolimas/complete anti viral with valacyclovir. will stop creon. cont marinol as it has improved his po intake. f/u pending colonoscopy bx's. 2) hypersomnolence - adderal prn Progress Note: Quality VTE Deep Vein Thrombosis/Pulmonary Embolism Present on Admission: No
--- NOTE | 2018-04-19 20:03 | P.PNGI ---
Subjective Interval history: Feeling better .Still loose stools but more formed .Denies nausea, vomiting, abdominal pain . Tolerating diet well .Discussed with , no beds available yet .We will dc home in am on tpn, fu op at [facility] scheduled on Thursday. Pathology reviewed suggesting ulcerative colitis, no evidence of overimposed infection Physical Exam Vital signs: Vital Signs 04/18/18 20:00 04/19/18 00:00 04/19/18 04:00 Temperature 97.3 F L 97.8 F 98.0 F Pulse Rate 70 80 68 Respiratory Rate 18 18 16 Blood Pressure 107/60 120/65 97/51 L Pulse Oximetry 98 98 99 04/19/18 08:00 04/19/18 12:00 04/19/18 16:00 Temperature 97.7 F 97.8 F 97.9 F Pulse Rate 105 H 86 88 Respiratory Rate 18 20 18 Blood Pressure 123/70 107/59 L 111/67 Pulse Oximetry 99 98 97 Intake & Output 04/19/18 04/19/18 04/20/18 06:59 18:59 06:59 Intake Total 2795.2 / 2795.2 110 / 110 Balance 2795.2 / 2795.2 110 / 110 Weight 57.3 kg Intake: IV 2315.2 / 2315.2 110 / 110 Zovirax Inj 250 MG In NS Inj 50 55 / 55 110 / 110 ML @ 55 mls/hr IV.SIG Q8H JESUS MANUEL Rx#:[id number] Intralipid 20% Inj 250 ML @ 10 250 / 250 mls/hr IV.SIG Q24H JESUS MANUEL Rx#: [id number] MVI-12 Inj 10 ML Folvite Inj 1 2009.2 / 2009.2 MG In Clinimix E 4.25%/D5W Inj 2,000 ML @ 83 mls/hr IV.SIG Q24H JESUS MANUEL Rx#:[id number] Oral 480 / 480 Other: # Voids 3 Date of Last Bowel Movement 04/18/18 04/19/18 # Bowel Movements 7 - Constitutional no acute distress - Routine HEENT Exam Head: Present: normocephalic Eye: Present: EOMI - Routine Neck Exam Present: supple - Routine Respiratory Exam Comments: normal - Routine Cardiovascular Exam Present: S1, S2 - Routine Abdominal Exam Present: soft - Routine Extremities Exam Present: full ROM - Routine Skin Exam Present: intact - Routine Neurological Exam Present: alert, oriented X3 - Routine Psychiatric Exam Present: normal affect Results - Labs CBC & Chem 7: 04/18/18 04:30 04/18/18 04:30 Laboratory Results - last 24 hr 04/14/18 04/14/18 04/14/18 09:52 09:52 09:52 POC Glucose Shrimp [place] Class Hep B DNA Qnt log IU/mL Less than 1.00 Hep B DNA (IU/mL) Less than 10 Misc Test Result 04/18/18 04/19/18 22:08 18:51 POC Glucose 176 H 157 H Shrimp [place] Class Hep B DNA Qnt log IU/mL Hep B DNA (IU/mL) Misc Test Result Microbiology 04/16/18 01:30 Stool Cryptosporidium Antigen - Final Negative - No Cryptosporicium antigen detected In selected cases of patients with a history of immunosuppression or foreign travel, a full ova and parasites examination may be desired. Contact the microbiology lab if full workup is indicated and subit another specimen for testing. 04/16/18 01:30 Stool Giardia Antigen (BELA) - Final Negative - No Giardia Antigen detected In selected cases of patients with a history of immunosuppression or foreign travel, a full ova and parasites examination may be desired. Contact the microbiology lab if full workup is indicated and subit another specimen for testing. 04/14/18 00:35 Blood - Peripheral Aerobic Blood Culture - Final No growth in 5 days 04/14/18 00:35 Blood - Peripheral Anaerobic Blood Culture - Final No growth in 5 days 04/14/18 00:30 Blood - Peripheral Aerobic Blood Culture - Final No growth in 5 days 04/14/18 00:30 Blood - Peripheral Anaerobic Blood Culture - Final No growth in 5 days Assessment and Plan - Attending Attestation Severe ulcerative colitis refractory to medical treatment - s/p first infusion of Entyvio-clinically improving Significant dehydration secondary to severe diarrhea -improved Weight loss, decreased appetite -improved -on TPN/Marinol 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 , not present on most recent biopsies-on antiviral treatment Diarrhea secondary severe ulcerative colitis -extensive work-up negative for any other etiology other than inflammatory bowel disease Anemia secondary ulcerative colitis-stable -will schedule iron infusion op Malnutrition, malabsorption-secondary severe ulcerative colitis-on tpn Recommendation Entyvio as per protocol -next infusion in 2 weeks from first infusion Continue TPN, Marinol Ok to dc home in am once home care arrangements are made Fu at [facility] -Thursday for further recommendation fu rest of blood work fu gi clinic 2 weeks We will start Tacrolimus 0.5 mg po bid and slowly increase to 2 mg po bid , patient reluctant to restart due to previous side effects We will transition to oral Prednisone -50 mg daily , than taper as Tacrolimus dose increase Patient will start medical marijuana soon , once that started can dc Marinol Continue Canasa supp, Cortenema Continue short chain fatty acids Overall improvement If not better consider colorectal surgery evaluation
[2018-04-19] MEDS: Multivitamin Inj 10 ML, Folic Acid Inj 1 MG in AA 5%/D20W - Electrolytes 2,000 ML IV.SIG SCH (21:37)
--- NOTE | 2018-04-20 09:32 | P.PNIM ---
Subjective Interval history: feels better and eager for dc Physical Exam Vital signs: Last Vital Signs Temp 98.2 F 04/20/18 03:44 Pulse 80 04/20/18 03:44 Resp 16 04/20/18 03:44 BP 98/58 L 04/20/18 03:44 Pulse Ox 100 04/20/18 03:44 Narrative: heart reg lung cta abd s/nt ext no edema picc line Results Labs CBC & Chem 7: 04/18/18 04:30 04/18/18 04:30 Assessment and Plan Plan - Mr. Bautista is a 57-year-old man with history of hypersomnolence and pulmonary sarcoidosis. - He is diagnosed with ulcerative colitis and has had a flare since 2016. - He has had worsening symptoms, particularly in 2018. - He has tried multiple immunosuppressive therapy. - Most recently, he is on Humira with the last dose about 10 days prior to this admission (04/14/18) - He is pending to start a new immunosuppressive therapy when he developed fevers on the day of presentation. - He is advised admission by his cutter brake lining, Dr. Maranda Galvan. - He needs a consultation with infectious disease to rule out infectious etiology for his fevers. - His home medications will continue. - Treatment with Entyvio is on hold pending infection evaluation. - comgmt with Gastroenterology & Infectious Disease - Tmax 101.8F (2300 04/13/18), but afebrile since - Blood Cx x2 (04/14/18) --> NGTD - Stool studies (04/14/18) --> pending - fecal leucocytes --> many WBCs - enteric pathogens --> no enteric pathogens dected by PCR - crytopsporidium antigen --> negative - giardia antigen --> negative - C.Diff (04/14/18) --> negative - Cipro (04/14/18 - 04/15/18) - flagyl (04/14/18 - 04/15/18) - alinia (04/15/18 - 04/17/18) - asacol (04/14/18 - 04/17/18) - Canasa (04/14/18 - present) - Bentyl (04/14/18 - present) - Lactobacillus (04/15 - present) - IV solumedrol (04/15 - present) - Acyclovir (04/14/18 - present) for herpes zoster coverage - Most recent colonoscopy showed viral inclusions present consistent with herpes in the background of severe acute and chronic colitis exhibiting glandular distortion, consistent with inflammatory bowel disease. It was negative for dysplasia - cadet deck consult placed for unintential weight loss. - PPN started (04/14/18), pt had PICC placed (04/17/18). PPN changed to TPN. - marinol - CT A/P (04/14/18) --> thickening of the wall of the colon particularly the descending colon & sigmoid colon part of it could be technical. Submucosal process in this pt with UC is NOT excluded. - CT chest --> old scarring. - CXR (04/14/17) --> no acute findings - GI allergy labs --> negative, except for shrimp allergen IgE Ab elevated at 0.25 - [id number] --> 102 (normal <54) - eosinophil stool smear (04/14/17) --> elevated 5-10 - IgG, IgA, IgM --> WNL - IgE --> WNL - Chromagranin A --> pending - thyroid peroxidate AB --> <1 - Celiac Disease Interp --> negative - Urine Cx (04/14/18) --> no growth - Chlamydia Cx/trachomatis Cx --> pending - CMV --> undetected - Hep B DNA --> pending - Non respiratory viral Cx --> pending - transgluatimin IgA --> <1 - transfluatimin IgG --> ND - thyroglobulin Ab --> <1 - throid peroxidate AB --> <1 - Celiac Disease Interp --> WNL - Case d/w Dr. Cerda - Case d/w Dr. Galvan - Case d/w Dr. Duran, ID, (04/15/18). . - case d/w Case Mgmt No bed at [facility]. dc home today with hhc and tpn. appt at [facility] tomorrow with GI Arranged tpn for infusion at home with [facility]. coordinating c today adn delivery of tpn discussed latest pathology with dr Galvan and patient. consistent with ulcerative colitis flare/severe plan for dc home prednisone taper/tacrolimas/complete anti viral with valacyclovir. will stop creon. cont marinol when approved. GI appt tomorrow at [facility]. 2) hypersomnolence - adderal prn Progress Note: Quality VTE Deep Vein Thrombosis/Pulmonary Embolism Present on Admission: No
[2018-04-20 09:50] VITALS: BP 102/56; PULSE 93; RESP 18; TEMP 98; O2SAT 99
[2018-04-20] MEDS: SODIUM CHLOR 0.9% IV.SIG SCH (09:53)
[2018-04-20] MEDS: ACYCLOVIR IV.SIG SCH (09:53)
[2018-04-20] MEDS: MethylPREDNISolone Sod Succinate Inj 40 MG/ML Vial IV.PUSH SCH (09:54)
[2018-04-20] MEDS: Lipase/Protease/Amylase 12/38/60 DR Capsule PO SCH (09:54)
[2018-04-20] MEDS: Famotidine 20 MG Tablet PO SCH (09:54)
[2018-04-20] MEDS: Heparin Central Flush 100 UNIT/ML 5 ML Vial IV.FLUSH SCH (11:04)
== END 2018-04-20 11:51 | disposition home health service (06) | DRG 386 ==
LOC: HCIN 22:56
PROVIDERS: ADMIT Hospitalist; ATTEND Hospitalist
PROC: COLONOS (2018-04-15 14:32)
PROC: PANENDO (2018-04-15 14:32)
DX: F32.9 Major depressive disorder, single episode, unspecified; G47.10 Hypersomnia, unspecified; Z82.3 Family history of stroke; Z85.828 Personal history of other malignant neoplasm of skin; B00.9 Herpesviral infection, unspecified; K20.9 Esophagitis, unspecified; K44.9 Diaphragmatic hernia without obstruction or gangrene; D50.9 Iron deficiency anemia, unspecified; R50.2 Drug induced fever; K51.919 Ulcerative colitis, unspecified with unspecified complications; K29.70 Gastritis, unspecified, without bleeding; K64.8 Other hemorrhoids; R64 Cachexia; Z82.5 Family history of asthma and other chronic lower respiratory diseases; M85.80 Other specified disorders of bone density and structure, unspecified site; Z79.52 Long term (current) use of systemic steroids; E86.0 Dehydration; Z68.1 Body mass index [BMI] 19.9 or less, adult; D86.0 Sarcoidosis of lung; F41.9 Anxiety disorder, unspecified; K90.9 Intestinal malabsorption, unspecified; K64.4 Residual hemorrhoidal skin tags
CPT/HCPCS: 36569; 71020; 71046; 71260; 74177; 76937; 80048; 80053; 80061; 80197; 82103; 82378; 82397; 82438; 82533; 82607; 82710; 82728; 82784; 82785; 82941; 82948; 82962; 83516; 83520; 83540; 83735; 83930; 84100; 84302; 84443; 84586; 84999; 85025; 85651; 85652; 86003; 86038; 86064; 86140; 86316; 86355; 86357; 86359; 86360; 86376; 86379; 86480; 86800; 87015; 87040; 87086; 87110; 87116; 87140; 87205; 87206; 87252; 87328; 87329; 87493; 87496; 87497; 87498; 87506; 87517; 87529; 88180; 88184; 88185; 88305; 88312; 93005; A4646; J0133; J1642; J2704; J2920; J3380; J7030; J7042; J7050; Q9950; Q9963; Q9965; Q9967